=== PATIENT | female | born 1995 | race Caucasian/White ===

== ENCOUNTER 2021-08-12 12:58 | Emergency (ER) | payer BC ==
--- OUTSIDE RECORDS SUMMARY | 2021-08-12 13:02 | XMS REPORT | Continuity of Care Document ---
:1995 Author Organization [facility] t Address [address] [place] [address] Care Team Providers Name Role Phone Kenn Orona Primary Care Physician Laurie Attending Clinician Unavailable Hosea RN, D Attending Clinician Unavailable MOOSE Attending Clinician Unavailable Only, Db Test Attending Clinician Unavailable Moose MARTINEZ Attending Clinician Doctor Unassigned, Name Attending Clinician Unavailable Lab, Fam Pob I Attending Clinician Unavailable Kenn Orona Attending Clinician Laurie Admitting Clinician Unavailable Payers Payer Name Policy Type Policy Number Effective Date Expiration Date S ource Advance Directives Directive Decision Effective Termination Comments Source Date Date Healthcare Agents on N/A [facility] FileNameRelationshipHealthcare [facility] Agent Medical RelationshipCommunicationDelaware Hospital for the Chronically Ill Care [phone] (Mobile) Problems Condition Condition Condition Status Onset Resolution Last Treating Co mments Source Name Details Category Date Date Treatment Clinician Date Need for Need for Disease Active 2018-09 Unive rs prophylact prophylact 0-07 it y of ic ic 00:00: [place] vaccinatio vaccinatio 00 Me dical n and n and Branch inoculatio inoculatio n against n against influenza influenza Rh Rh Disease Active Univers negative negative 8-08 ity of state in state in 00:00: [place] antepartum antepartum 00 Me dical period period Branch Rubella Rubella Disease Active Univers non-immune non-immune 04-25 it y of status, status, 00:00: [place] antepartum antepartum 00 Me dical Branch High risk High risk Disease Active Uni vers , , 04-24 [place] BMI BMI Disease Active Univers 26.0-26.9, 26.0-26.9, 8 it y of adult adult 00:00: [place] 00 Medical Branch History of History of Disease Active U nivers one one 04-24 [place] of miscarriag miscarriag [place] History of History of Disease Active U nivers sleeve sleeve 04-24 ity of gastrectom gastrectom [place] Papanicola Papanicola Disease Active Overview : Univers ou smear ou smear 04-24 Formattin ity of of cervix of cervix 00:00: [place] of this [place] with low with low 00 note Medica l grade grade might be Branch squamous squamous different intraepith intraepith from the elial elial original. 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) Arthralgia Arthralgia Disease Active U nivers of both of both 12-22 ity of knees knees 00:00: [place] 00 Medical Branch Allergies, Adverse Reactions, Alerts Allergy Allergy Status Severity Reaction(s) Onset Inactive Treating Comm ents Source Name Type Date Date Clinician No Known DA Active U [facility] All[facility]ie 12-22 [facility] [place] ondanset DA Active U 2020-0 [facility] sanjiv 4-06 [facility] 00:[facility]: [facility] [place] ondanset DA Active U ITCHING, 2020-0 [facility] sanjiv TONGUE 4-06 Woman's SWELLED 00:00: [facility] [place] No Known DA Active U 2020-0 [facility] Allergie 4-06 [facility] s 00:[facility]: [facility] [place] No Known DA Active U 2020-0 [facility] Allergie 1-28 [facility]'s s 00:00: [facility] [place] No Known DA Active U 2020-0 [facility] Allergie 1-28 [facility] s 00:[facility]: [facility] [place] NO KNOWN Drug Active Univers ALLERGIE Class ity of S [facility] Social History Social Habit Start Date Stop Date Quantity Comments Source ASSERTION 2019-04-03 University of 00:00:00 [facility] Branch Exposure to Not sure [facility] SARS-CoV-2 [facility] (event) Branch Tobacco use and 2020-03-25 2020-03-25 Never used Universit y of exposure 00:00:00 00:00:00 [facility] Alcohol intake 2020-03-25 2020-03-25 Current University 00:00:00 00:00:00 non-drinker of [facility] alcohol Branch (finding) Sex Ass[birth year] Universit y of 00:00:00 00:00:00 [facility] Smoking Status Start Date Stop Date Source Never smoker [facility] Medications Ordered Filled Start Stop Current Ordering Indication Dosage Frequency Signature Comments Components Source Medication Medication Date Date Medication? Clinician (SIG) Name Name 2018-09 Yes Take by Unive rs vit 0-07 mouth. ity of calc,iron,f 14:20: [place] olic 02 Medical ( Branch VITAMIN ORAL) 2019- Yes Take by Unive rs vit 0-07 mouth. ity of calc,iron,f 14:20: [place] olic 02 Medical ( Branch VITAMIN ORAL) 2019- Yes Take by Unive rs vit 0-07 mouth. ity of calc,iron,f [facility] [place] [facility] Branch [facility]) 2019- Yes Take by Unive rs vit 0-07 mouth. ity of calc,iron,f 14:20: [facility] 02 Medical ( Branch VITAMIN ORAL) 2019-1 Yes Take by Unive rs vit 0-07 mouth. ity of calc,iron,f 14:20: [facility] 02 Medical ( Branch VITAMIN ORAL) 2019-1 Yes Take by Unive rs vit 0-07 mouth. ity of calc,iron,f 14:20: [facility] 02 Medical ( Branch VITAMIN ORAL) 2019-0 Yes Take by Unive rs vit 9-09 mouth. ity of calc,iron,f 14:19: [place] [address] Medical ( Branch VITAMIN ORAL) 2019-0 Yes Take by Unive rs vit 9-09 mouth. ity of calc,iron,f 14:19: [place] [address] Medical ( Branch VITAMIN ORAL) 2019-0 Yes Take by Unive rs vit 9-09 mouth. ity of calc,iron,f 14:19: [address] ( Branch VITAMIN ORAL) ergocalcife 2019-0 Yes Take by Un krystina rol, 8-07 mouth. ity of vitamin D2, 14:53: [place] (VITAMIN D 43 Medical ORAL) Branch ergocalcife 2018-0 Yes Take by Un krystina rol, 8-07 mouth. ity of vitamin D2, 14:53: [place] (VITAMIN D 43 Medical ORAL) Branch ergocalcife 2018-0 Yes Take by Un krystina rol, 8-07 mouth. ity of vitamin D2, 14:53: [place] (VITAMIN D 43 Medical ORAL) [place] ergocalcife 2018-0 Yes Take by Un krystina rol, 8-07 mouth. ity of vitamin D2, 14:53: [place] (VITAMIN D 43 Medical ORAL) Branch ergocalcife 2019-0 Yes Take by Un krystina rol, 8-07 mouth. ity of vitamin D2, 14:53: [place] (VITAMIN D 43 Medical ORAL) Branch ergocalcife 2019-0 Yes Take by Un krystina rol, 8-07 mouth. ity of vitamin D2, 14:53: [place] (VITAMIN D 43 Medical ORAL) Branch ergocalcife 2019-0 Yes Take by Un krystina rol, 8-07 mouth. ity of vitamin D2, 14:53: [place] (VITAMIN D 43 Medical ORAL) Branch ergocalcife 2019-0 Yes Take by Un krystina rol, 8-07 mouth. ity of vitamin D2, 14:53: [place] (VITAMIN D 43 Medical ORAL) Branch ergocalcife Yes Take by Un krystina rol, 8-07 mouth. ity of vitamin D2, 14:53: [place] (VITAMIN D 43 Medical ORAL) Branch ergocalcife Yes Take by Un krystina rol, 8-07 mouth. ity of vitamin D2, 14:53: [place] (VITAMIN D 43 Medical ORAL) Branch ergocalcife Yes Take by Un krystina rol, 8-07 mouth. ity of vitamin D2, 14:53: [place] (VITAMIN D 43 Medical ORAL) Branch ergocalcife Yes Take by Un krystina rol, 8-07 mouth. ity of vitamin D2, 14:53: [place] (VITAMIN D 43 Medical ORAL) [place] Yes Take by Unive rs vit 8-07 mouth. ity of calc,iron,f 14:53: [place] [address] Medical ( Branch VITAMIN ORAL) Yes Take by Unive rs vit 8-07 mouth. ity of calc,iron,f 14:53: [place] [address] Medical ( Branch VITAMIN ORAL) Yes Take by Unive rs vit 8-07 mouth. ity of calc,iron,f 14:53: [place] [address] Medical ( Branch VITAMIN ORAL) diclofenac Yes 75mg Take 1 Tab U nivers (VOLTAREN) 4-06 by mouth 2 ity of 75 mg EC 00:00: (two) [place] tablet 00 times Medical daily with Branch meals. diclofenac 2018- No 75mg Take 1 Tab Univers (VOLTAREN) 12-22 08-07 by mouth 2 it y of 75 mg EC 00:00: 00:00 (two) [place] tablet 00 :00 times Medical daily with Branch meals. diclofenac 2018- No 75mg Take 1 Tab Univers (VOLTAREN) 12-22 08-07 by mouth 2 it y of 75 mg EC 00:00: 00:00 (two) [place] tablet 00 :00 times Medical daily with Branch meals. LOESTRIN FE Yes Univer s (MICROGESTI 3-25 ity of N FE 10/07, 00:00: [place] 28,) 1 00 Medical mg-20 mcg Branch (21)/75 mg (7) tablet LOESTRIN FE 2019- No Unive rs (MICROGESTI 3-25 - ity of N FE 10/07, 00:00: 00:00 [place] 28,) 1 00 :00 Medical mg-20 mcg Branch (21)/75 mg (7) tablet LOESTRIN FE 2019- No Unive rs (MICROGESTI 3-25 04-24 ity of N FE 10/07, 00:00: 00:00 [place] 28,) 1 00 :00 Medical mg-20 mcg Branch (21)/75 mg (7) tablet VYVANSE 40 Yes Univers mg capsule 2-10 ity of 00:00: [place] 00 Medical Branch VYVANSE 40 2019- No Univer s mg capsule 2-06 25- ity of 00:00: 00:00 [place] 00 :00 Medical Branch VYVANSE 40 2019- No Univer s mg capsule 2-04-24 ity of 00:00: 00:00 [place] 00 :00 Medical Branch Vital Signs Vital Name Observation Time Observation Value Comments Source Systolic blood 2019-05-27 13:58:00 106 mm[Hg] [facility] Diastolic blood 2019-05-27 13:58:00 69 mm[Hg] Unive rsity of [facility] Heart rate 2019-05-27 13:58:00 82 /min [facility] Body temperature 2019-05-27 13:58:00 36.56 Courtney [facility] Respiratory rate 2019-05-27 13:58:00 16 /min [facility] Body height 2019-05-27 13:58:00 167.6 cm [facility] Body weight 2019-05-27 13:58:00 75.552 kg [facility] BMI 2019-05-27 13:58:00 26.88 kg/m2 [facility] Systolic blood 2019-04-24 14:35:00 92 mm[Hg] Univer sity of [facility] Diastolic blood 2019-04-24 14:35:00 62 mm[Hg] Unive rsity of [facility] Heart rate 2019-04-24 14:35:00 60 /min [facility] Body temperature 2019-04-24 14:35:00 37.06 Courtney [facility] Respiratory rate 2019-04-24 14:35:00 16 /min [facility] Body height 2019-04-24 14:35:00 167.6 cm [facility] Body weight 2019-04-24 14:35:00 76.374 kg [facility] BMI 2019-04-24 14:35:00 27.18 kg/m2 [facility] Procedures Procedure Date / Time Performed Performing Clinician [facility] e ASSIGNMENT OF BENEFITS 2021-05-29 17:36:45 Doctor Unassigned, No [facility] [id number] 2019-12-23 00:00:00 MONMA.05 [facility] [place] [id number] 2019-12-23 00:00:00 MONMA.05 [facility] [place] POCT URINALYSIS W/O 2019-05-27 14:16:[address] [facility] POCT TEST 2019-04-24 14:28:00 Gina Rodriguez [facility] POCT URINALYSIS W/O 2019-04-24 14:28:[address] [facility] ASSIGNMENT OF BENEFITS 2019-04-24 13:39:32 Doctor Unassigned, No [facility] Encounters Start End Encounter Admission Attending Care Care Encounter Source Date/Time Date/Time Type Type Clinicians Facility Department ID 2020-01-01 Inpatient SRI Fowler LD [id number] [facility] 06:56:00 Aurea [id number] [facility] [place] 2019-12-23 Inpatient SRI Fowler AKOSUA [id number] [facility] 06:35:00 Aurea [facility] [place] 2019-10-15 Inpatient SRI Fowler AKOSUA [id number] [facility] 19:51:00 Aurea [id number] [facility] [place] 2021-05-30 2021-05-30 Telephone JOSE Jc [id number] [facility] 00:00:00 00:00:00 Maryann D LENORA [id number] i ty of HOSPITAL 4.2.7.2.686 [place] [phone] [facility] 019 Branch 2021-05-29 2021-05-29 Outpatient R [facility] [id number] Univers 19:45:00 19:45:00 [id number] ity of [facility] 2021-05-29 2021-05-29 [id number] Univers 19:45:00 19:45:00 GAIL ity [facility] 2021-05-29 2021-05-29 Laboratory Only, Ang Db Test [facility] 1.2.8 [id number] [id number] Univers 12:37:39 12:47:39 Only Moose [facility] 350.1.13.10 ity of [place] 4.2.7.2.686 [place] Chinmay?Blea [phone] [address] nelson karimi [address] [place] [facility] 2021-05-29 2021-05-29 Orders Doctor GARCIA [id number] Univers 00:00:00 00:00:00 Only Unassigned, LENORA 350.1.13.10 ity of [place] [facility] 4.2.7.2.686 [place] [id number] [facility] 009 Branch 2020-07-15 2020-07-15 Outpatient R [facility] [id number] Univers 09:00:00 09:00:00 [id number] ity of [facility] 2020-07-14 2020-07-14 Outpatient R MOOSE [facility] [id number] Univers 19:00:00 19:00:00 GAIL ity of [facility] 2020-07-14 2020-07-14 Laboratory Lab, Adc Fam Pob I [facility] 1.2. [id number] [id number] Univers 18:08:46 18:28:46 Only Moose [facility] 350.1.13.10 ity of [place] 4.2.7.2.686 [place] Professio [phone] N[address] nelson thompson [address] [place] [facility] One 2020-07-14 2020-07-14 [facility] [id number] Univers 18:20:00 18:20:00 GAIL ity of [facility] 2020-07-14 2020-07-14 Outpatient R [facility] [id number] Univers 13:40:00 13:40:00 [id number] ity [facility] 2020-07-14 2020-07-14 Outpatient R [facility] [id number] Univers 13:40:00 13:40:00 ity [facility] 2019-05-27 2019-05-27 [facility] [id number] Univers 08:46:01 09:11:08 Gina N RECREATIONAL DIRECTOR [id number] i ty of Visit [facility] 4.2.7.2.686 [place] MATERNAL [phone] Med ical & CHILD [address] [place] [address] 2019-05-27 2019-05-[address] [facility] [id number] 00:00:00 00:00:00 Gina N RECREATIONAL DIRECTOR [id number] REGIONAL 4.2.7.2.686 MATERNAL [id number] & CHILD [address] [place] [address] 2019-05-27 2019-05-27 [facility] 1.2.840.114 [id number] Univers 00:00:00 00:00:00 Gina Hawk RECREATIONAL DIRECTOR 350.1.13.10 it y of REGIONAL 4.2.7.2.686 [place] MATERNAL [phone] Med ical & CHILD [address] [place] [address] 2019-04-24 2019-04-24 Initial LULI Rodriguez [id number] Univers 09:26:44 10:14:16 Gina N RECREATIONAL DIRECTOR 350.1.13.10 i ty of Visit [facility] 4.2.7.2.686 [place] as MATERNAL [id number] Med ical & CHILD [address] [place] [address] 2019-04-24 2019-04-24 Orders Doctor GARCIA [id number] Univers 00:00:00 00:00:00 Only Unassigned, LENORA 350.1.13.10 ity of [place] [facility] 4.2.7.2.686 [place] [phone] [address] 2019-04-24 2019-04-24 [facility] 1.2.840.114 [id number] Univers 00:00:00 00:00:00 Gina N RECREATIONAL DIRECTOR [id number] it y of REGIONAL 4.2.7.2.686 [place] MATERNAL [id number] Med ical & CHILD [address] [place] [address] Results Test Description Test Time Test Comments Results Result Comments Source HGB HCT 2019-12-24 06:22:00 Test Item Value Reference Range Interpretation Comme nts HEMOGLOBIN (test code = HGB) 10.6 g/dL 10.7-13.9 L HEMATOCRIT (test code = HCT) 31.8 % 32.1-42.1 L AG HEPATITIS B [id number] 10:08:00 Test Item Value Reference Range Interpretation Comments AG HEPATITIS B SURFACE (test code NONREACTIVE NONREACTIVE = HBSAG) IS CONSENT FORM SIGNED FOR HIV TESTING? YAB HEPATITIS C [id number] 10:08:00 Test Item Value Reference Range Interpretation Comments AB HEPATITIS C (test code = NONREACTIVE NONREACTIVE HCVAB) SIGNAL TO CUTOFF (test code = 0.21 <0.80 N CUTOFF) IS CONSENT FORM SIGNED FOR HIV TESTING? YAB [id number] 10:08:00 Test Item Value Reference Range Interpretation Comments AB TREPONEMA (test code = TREPAB) NONREACTIVE NONREACTIVE IS CONSENT FORM SIGNED FOR HIV TESTING? YAB HIV 1 10:08:00 Test Item Value Reference Range Interpretation Comments AB HIV 1 2 (test NONREACTIVE NONREACTIVE [id number][facility] 4th Gen HIV Ag/Ab Combo Screen IS CONSENT FORM SIGNED FOR HIV TESTING? YAG HEPATITIS B [id number] 09:51:00 Test Item Value Reference Range Interpretation Comments AG HEPATITIS B SURFACE (test code NONREACTIVE NONREACTIVE = HBSAG) IS CONSENT FORM SIGNED FOR HIV TESTING? YAB HEPATITIS C [id number] 09:51:00 Test Item Value Reference Range Interpretation Comments AB HEPATITIS C (test code = HCVAB) NONREACTIVE SIGNAL TO CUTOFF (test code = CUTOFF) <0.80 IS CONSENT FORM SIGNED FOR HIV TESTING? YAB [id number] 09:51:00 Test Item Value Reference Range Interpretation Comments AB TREPONEMA (test code = TREPAB) NONREACTIVE NONREACTIVE IS CONSENT FORM SIGNED FOR HIV TESTING? YAB HIV 1 09:51:00 Test Item Value Reference Range Interpretation Comments AB HIV 1 2 (test code = [id number]) NONREACTIVE IS CONSENT FORM SIGNED FOR HIV TESTING? YCBC W/AUTO [id number] 08:53:00 Test Item Value Reference Range Interpretation Comments WHITE BLOOD CELL (test code = WBC) 11.6 K/mm3 6.6-12.1 N RED BLOOD CELL (test code = RBC) 3.86 M/mm3 3.45-5.01 N HEMOGLOBIN (test code = HGB) 12.0 g/dL 10.7-13.9 N HEMATOCRIT (test code = HCT) 36.0 % 32.1-42.1 N MEAN CELL VOLUME (test code = MCV) 93 fL 84.1-94.8 N MEAN CELL HGB (test code = MCH) 31.1 pg 27-35 N MEAN CELL HGB CONCETRATION (test 33.3 gm/dL 32.2-34.1 N code = MCHC) RED CELL DISTRIBUTION WIDTH (test 12.8 % 12.4-16.5 N code = RDW) PLATELET COUNT (test code = PLT) 173 K/mm3 133-385 N MEAN PLATELET VOLUME (test code = 12.4 fl 9.1-12.7 N MPV) NEUTROPHIL % (test code = NT%) 65.0 % 56.5-79.4 N LYMPHOCYTE % (test code = LY%) 26.5 % 14.3-34.3 N MONOCYTE % (test code = MO%) 6.1 % 5.1-10.4 N EOSINOPHIL % (test code = EO%) 0.7 % 0.1-3.0 N BASOPHIL % (test code = BA%) 0.5 % 0.1-1.0 N NEUTROPHIL # (test code = NT#) 7.5 K/mm3 LYMPHOCYTE # (test code = LY#) 3.1 K/mm3 MONOCYTE # (test code = MO#) 0.7 K/mm3 EOSINOPHIL # (test code = EO#) 0.08 K/mm3 BASOPHIL # (test code = BA#) 0.1 K/mm3 RBC MORPHOLOGY REQUIRED (test code NORMAL NORMAL = RBCM) PLATELET MORPHOLOGY REQUIRED (test NORMAL NORMAL code = PLTMR) RUPTURE OF [id number] 08:40:00 Test Item Value Reference Range Interpretation Comments RUPTURE OF MEMBRANES (test code = RUPTURED ROM) - US FET BIO PH FL W/O [id number] 07:53:00 Patient Name: NELLIE JACOBO Unit No: [id number] EXAMS: CPT CODE: [id number] US FET BIO PH FL W/O NST 47389 [facility] [address] [place], [place] [address] BIOPHYSICAL PROFILE ULTRASOUND REPORT Pat. Name: NELLIE JACOBO Pat. No: [id number] Study Date: 12/23/2019 7:14am , Age: 11 1995, 24 Pregnancies: 2, Para 0 LMP: Unknown GA by 1st: 38w5d GA Selected: 38w5d (From First S) SCOTT: 01/01/2020Sonographer: Liberty Singletary RDMS CPT4: USBPPWONST Admitting MD: AUREA FOWLER Hist/Ind: SCAN 2 BLEEDING Heart Rate: 127 bpm Amniotic Fluid Index: 16.4cm (07.2-23.0) Q1: 4.8cm Q2: 5.9cm Q3: 2.4cm Q4: 3.4cm Biophysical Profile: 04/25 Breathin Tone: 2 Movement: 2 AFV:2 MATERNAL ANATOMY Ovaries LxHxW (cm) Right 2.8 x 1.5x 1.5 Vol: 3.3cc Left 2.6 x 1.8 x 2.2 Vol: 5.4cc CLI NICAL SUMMARY Type of Gestation: Mendez Intrauterine in vertex presentation. motion and organs seen: heart motion seen body and limb movements observed tone noted breathing movements observed Placental location: Anterior Placental maturity : Grade 2 There is no evidence of placenta previa. Amniotic fluid volume is normal. Uterus and adnexa: No significant abnormality is seen. Thank you for allowing us to participate in the care of this patient. Dalton Mccoy M.D. Electronic Signature 12/23/2019 07:53am [facility] NAME: JACOBONELLIE Radiology Department PHYS: Aurea Thomas DO [address] : 1995 AGE: 24 SEX: [place], [place] [address] LOC: MaicolAKOSUA PHONE #: [phone] EXAM DATE: 12/23/2019 STATUS: REG ER FAX #: [phone] RAD NO: Page 1 Signed Report (CONTINUED) Patient Name: NELLIE JACOBO Unit No: [id number] EXAMS: CPT CODE: [id number] US FET BIO PH FL W/O NST 15381 <Continued> at 0753 Reported and signed by: Dalton Mccoy MD CC: Aurea Fowler DO Technologist: Liberty Singletary RDMS Probe: Trnscrbd D/ (075) t.[email or web address].[email or web address] Orig Print D/T: S: 12/23/2019 (0753) [facility] NAME: NELLIE JACOBO Radiology Department PHYS: [address] Aurea Fowler [address] : 1995 AGE: 24 SEX: F [place] [address] LOC: MaicolAKOSUA PHONE #: [phone] EXAM DATE: 12/23/2019 STATUS: REG ER FAX #: [phone] RAD NO: Page 2 Signed Report Patient Name: NELLIE JACOBO Unit No: [id number] EXAMS: CPT CODE: [id number] US FET BIO PH FL W/O NST 39302 <Continued> [facility] NAME: NELLIE JACOBO Radiology Department PHYS: HERNANDEZ Aurea Fowler DO [address] [place] : 1995 AGE: 24 SEX: F [place] [address] LOC: MaicolAKOSUA PHONE #: [phone] EXAM DATE: 12/23/2019 STATUS: REG ER FAX #: [phone] RAD NO: Page 3 Signed Report- US PREG UT [id number] 21:44:00 Patient Name: NELLIE JACOBO J Unit No: [id number] EXAMS: CPT CODE: [id number] US PREG [place] TRANSVAGINAL 84675 Limited obstetrical ultrasound with transvaginal imaging of the cervix dated 10/15/2019. HISTORY: 28.6 week . Abdominal pain. A limited transabdominal obstetrical ultrasound was performed and reveals the presence of a single intrauterine in cephalic position. cardiac activity is documented with a heart rate of 121 bpm. The placenta is anteriorly positioned and demonstrates grade 2 echotexture. There is no evidence of placenta previa or retroplacental hemorrhage. Amniotic fluid volume is increased with a measured BRITTANY of 20.6. The cervix is closed with a measured cervical length of 4.1 cm on transvaginal imaging. measurements were not obtained. A anatomic survey was not performed. The left ovary measures 2.9 x 2.1 x 2.7 cm and the left ovary measures 2.7 x 1.0 x 2.0 cm. The ovaries maintain normal echotexture. Ovarian blood flow is visualized bilaterally using Doppler ultrasound. No adnexal masses or pelvic fluid collections are identified. IMPRESSION: 1. Single living intrauterine in cephalic position. 2. Amniotic fluid volume is increased with a measured BRITTANY of 20.6. SL: 131 at 2144 Reported and signed by: Braden Rocha MD CC: Aurea Fowler DO Technologist: Sandra Alcaraz RDMS, T Probe: [id number] Trnscrbd D/ (2143) tCLEM Orig Print D/T: S: 10/15/2019 (2146) [facility] NAME: NELLIE JACOBO Radiology Department PHYS: Aurea Thomas DO [address] : 1995 AGE: 24SEX: F [place] [address] LOC: F.AKOSUA PHONE #: [phone] EXAM DATE: 10/15/2019 STATUS: REG ER FAX #: [phone] RAD NO: Page 1 Signed Report Patient Name: NELLIE JACOBO Unit No: [id number] EXAMS: CPT CODE: [id number] [facility] TRANSVAGINAL [address] <Continued> [facility] Radiology Department PHYS: Aurea Thomas DO [address] : 1995 AGE: 24 SEX: F [place] [address] [facility] [id number] LOC: MaicolAKOSUA PHONE #: [phone] EXAM DATE: 10/15/2019 STATUS: REG ER FAX #: [phone] RAD NO: Page 2 Signed Report- US [id number] 21:44:00 Patient Name: NELLIE JACOBO Unit No: [id number] EXAMS: CPT CODE: [id number] [place] LTD [address] Limited obstetrical ultrasound with transvaginal imaging of the cervix dated 10/15/2019. HISTORY: 28.6 week . Abdominal pain. A limited transabdominal obstetrical ultrasound was performed and reveals the presence of a single intrauterine in cephalic position. cardiac activity is documented with a heart rate of 121 bpm. The placenta is anteriorly po sitioned and demonstrates grade 2 echotexture. There is no evidence of placenta previa or retroplacental hemorrhage. Amniotic fluid volume is increased with a measured BRITTANY of 20.6. The cervix is closed with a measured cervical length of 4.1 cm on transvaginal imaging. measurements were not obtained. A anatomic survey was not performed. The left ovary measures 2.9 x 2.1 x 2.7 cm and the left ovary measures 2.7 x 1.0 x 2.0 cm. The ovaries maintain normal echotexture. Ovarian blood flow is visualized bilaterally using Doppler ultrasound. No adnexal masses or pelvic fluid collections are identified. IMPRESSION: 1. Single living intrauterine in cephalic position. 2. Amniotic fluid volume is increased with a measured BRITTANY of 20.6. SL: 131 at 2143 Reported and signed by: Braden Rocha MD CC: Aurea Fowler DO; Britta Cardenas MD Technologist: Sandra Alcaraz RDMS, RVT Probe: Trnscrbd D/ (2143) [place] Orig Print D/T: S: 10/15/2019 (2146) [facility] NAME: FEMI JACOBOI Moe Radiology Department PHYS: Britta Medel MD [address] : 1995 AGE: 24SEX: F [place], [place] [address] LOC: MaicolAKOSUA PHONE #: [phone] EXAM DATE: 10/15/2019 STATUS: REG ER FAX #: [phone] RAD NO: Page 1 Signed Report Patient Name: FEMI MARTINSI Moe Unit No: [id number] EXAMS: CPT CODE: [id number] [id number] <Continued> [facility] Rad[facility] PHYS: Britta Medel MD [address] : 1995 AGE: 24 SEX: F [place], [place] [address] LOC: MaicolAKOSUA PHONE #: [phone] EXAM DATE: 10/15/2019 STATUS: REG ER FAX #: [phone] RAD NO: Page 2 Signed ReportURINALYSIS [id number] 20:39:00 Test Item Value Reference Range Interpretation Comments UA COLOR (test code = COLU) YELLOW YELLOW UA APPEARANCE (test code = Slightly-Cloudy CLEAR APPU) UA GLUCOSE DIPSTICK (test NEGATIVE NEG code = DGLUU) UA BILIRUBIN DIPSTICK (test NEGATIVE NEG code = BILU) UA KETONE DIPSTICK (test code NEGATIVE NEG = KETU) UA SPECIFIC GRAVITY (test 1.020 1.001-1.035 N code = SGU) UA BLOOD DIPSTICK (test code NEG NEG = MISTY) UA PH DIPSTICK (test code = 5.0 5-9 RIO) UA PROTEIN DIPSTICK (test NEGATIVE NEG code = PROU) UA UROBILINIOGEN DIPSTICK 2.0 mg/dL NEG (test code = URO) UA NITRITE DIPSTICK (test NEG NEG code = ARLETH) UA LEUKOCYTE ESTERASE TRACE NEG A DIPSTICK (test code = LEUU) UA WBC (test code = WBCU) 6-10 #/hpf NONE SEEN A UA RBC (test code = RBCU) 0-2 #/hpf NONE SEEN UA EPITHELIAL CELLS (test MODERATE #/HPF RARE-FEW A code = EPIU) UA BACTERIA (test code = RARE /HPF RARE-FEW BACU) UA MUCUS (test code = MUCU) 2+ NONE SEEN URINE SAMPLE: CLEAN CATCHPOCT URINALYSIS W/O SPECIFIC [id number] 14:16:00 Test Item Value Reference Range Interpretation Comments POCT PH U (test code = 3254) . 5-8 POCT U LEUK EST (test code = 3263) . Negative - Negative POCT U NIT (test code = 3262) . Negative - Negative POCT U PROT (test code = 3259) neg Negative - Negative POCT U GLU (test code = 3256) neg Negative - Negative POCT U KETONE (test code = 3258) . Negative - Negative POCT U BLD (test code = 3257) . Negative - Negative [facility] [id number] 14:29:00 Test Item Value Reference Range Interpretation Comments POCT PREG (test code = 1605) Positive On board controls acceptable with C Yes Line (test code = 3574) POCT PREG LOT # (test code = 3575) POCT PREG TEST DATE (test code = 3576) [facility] [id number] 14:29:00 Test Item Value Reference Range Interpretation Comments POCT PREG (test code = 1605) Positive On board controls acceptable with C Yes Line (test code = 3574) POCT PREG LOT # (test code = 3575) POCT PREG TEST DATE (test code = 3576) [facility] URINALYSIS W/O SPECIFIC [id number] 14:28:00 Test Item Value Reference Range Interpretation Comments POCT PH U (test code = 3254) 5 mg/dl 5-8 POCT U LEUK EST (test code = trace Negative - Negative 3263) POCT U NIT (test code = 3262) neg Negative - Negative POCT U PROT (test code = 3259) neg Negative - Negative POCT U GLU (test code = 3256) neg Negative - Negative POCT U KETONE (test code = 3258) neg Negative - Negative POCT U BLD (test code = 3257) neg Negative - Negative [facility] URINALYSIS W/O SPECIFIC [id number] 14:28:00 Test Item Value Reference Range Interpretation Comments POCT PH U (test code = 3254) 5 mg/dl 5-8 POCT U LEUK EST (test code = trace Negative - Negative 3263) POCT U NIT (test code = 3262) neg Negative - Negative POCT U PROT (test code = 3259) neg Negative - Negative POCT U GLU (test code = 3256) neg Negative - Negative POCT U KETONE (test code = 3258) neg Negative - Negative POCT U BLD (test code = 3257) neg Negative - Negative [facility]
[2021-08-12 13:41] LABS: Absolute Lymphocytes (CBC) 1.9 K/uL (0.7-4.9); Basophils % 0.4 % (0-1.3); Hematocrit 38.3 % (36.0-45.0); Lymphocytes % 36.7 % (15.3-44.8); RBC Red Blood Cell Count 4.27 M/uL (3.86-4.86)
[2021-08-12 14:00] LABS: Albumin 3.3 g/dL (3.4-5.0); Bilirubin Direct 0.1 mg/dL (0-0.2); Bilirubin Total 0.5 mg/dL (0.2-1.0); Magnesium 2.4 mg/dL (1.8-2.4); Potassium 3.6 mmol/L (3.5-5.1); Protein, Total 7.2 g/dL (6.4-8.2)
[2021-08-12 14:30] LABS: Urine Blood Trace-intact (Negative); Urine Glucose Negative (Negative); Urine Protein Negative (Negative); Urine Specific Gravity 1.015 (1.005-1.030); Urine pH 6.5 (5.0-7.0)
[2021-08-12 14:49] LABS: Urine Bacteria <20 /HPF (<20); Urine RBC <5 /HPF (NONE SEEN)
[2021-08-12 14:57] LABS: Urine Blood TRACE (Negative); Urine Glucose NEGATIVE (Negative); Urine Protein NEGATIVE (Negative); Urine Specific Gravity 1.015 (1.005-1.030); Urine Specific Gravity/Preg 1.015 (1.005-1.030); Urine pH 6.5 (5.0-7.0)
--- NOTE | 2021-08-12 16:12 | RAD REPORT ---
EXAM DESCRIPTION: CT - Abdomen Pelvis W Contrast - 08/12/2021 3:58 pm CLINICAL HISTORY: Abdominal pain. COMPARISON: None. TECHNIQUE: Computed axial tomography of the abdomen and pelvis was obtained. 100 cc Isovue-300 is ad ministered intravenously. Oral contrast was given. All CT scans are performed using dose optimization technique as appropriate and may include automated exposure control or mA/KV adjustment according to patient size. FINDINGS: Postsurgical changes involve the stomach. The liver, spleen, pancreas, adrenals and kidneys appear unremarkable. The appendix is normal caliber. There is no evidence of diverticulitis No adnexal mass. Small umbilical hernia 2 centimeter area of narrowing rectosigmoid colon IMPRESSION: A 2 centimeter area of narrowing rectosigmoid colon most likely spasm. A mass can have this appearance but is considered less likely. Followup is recommended.
--- NOTE | 2021-08-12 16:33 | ER ---
Nurse's Notes [facility] Name: María Sinha Age: 26 yrs Sex: Female : 1995 Arrival Date: 08/12/2021 Time: 13:02 Bed 14 Private MD: Diagnosis: Abdominal pain, unspecified Presentation: 08/12 13:11 Chief complaint: Patient states: Epigastric and RLQ pain that is intermittent for about vg1 a month. States pain becomes worse after eating. States NVD last night. Coronavirus screen: Vaccine status: Client denies travel out of the [place] in the last 14 days. Ebola Screen: Patient negative for fever greater than or equal to 101.5 degrees Fahrenheit, and additional compatible Ebola Virus Disease symptoms. Initial Sepsis Screen: Does the patient meet any 2 criteria? No. Patient's initial sepsis screen is negative. Does the patient have a suspected source of infection? No. Patient's initial sepsis screen is negative. Risk Assessment: Do you want to hurt yourself or someone else? Patient reports no desire to harm self or others. Onset of symptoms was July 12, 2021. 13:11 Method Of Arrival: Ambulatory vg1 13:11 Acuity: SAMREEN 3 vg1 Triage Assessment: 13:14 General: Appears in no apparent distress. uncomfortable, Behavior is calm, cooperative. vg1 Pain: Complains of pain in epigastric area and right lower quadrant Pain currently is 2 out of 10 on a pain scale. at worst was 8 out of 10 on a pain scale. Pain began about a month ago. GI: Abdomen is flat, non-distended, Reports diarrhea, vomiting, since yesterday. 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 - Social history:: Smoking status: Patient denies any tobacco usage or history of. Screenin:30 Abuse screen: Denies threats or abuse. Denies injuries from another. Nutritional aj1 screening: No deficits noted. Tuberculosis screening: No symptoms or risk factors identified. 17:02 Fall Risk None identified. aj1 Assessment: 13:30 General: Appears in no apparent distress. uncomfortable, Behavior is calm, cooperative, aj1 appropriate for age. Pain: Complains of pain in right lower quadrant and epigastric area Pain does not radiate. Neuro: Level of Consciousness is awake, alert, obeys commands, Oriented to person, place, time, situation. Cardiovascular: Patient's skin is warm and dry. Respiratory: Airway is patent Respiratory effort is even, unlabored, Respiratory pattern is regular, symmetrical. GI: Abdomen is flat, non-distended, Bowel sounds present X 4 quads. Abd is soft X 4 quads Reports lower abdominal pain, upper abdominal pain, diarrhea, nausea, vomiting. : No signs and/or symptoms were reported regarding the genitourinary system. EENT: No signs and/or symptoms were reported regarding the EENT system. Derm: No signs and/or symptoms reported regarding the dermatologic system. Skin is pink, warm \T\ dry. normal. Musculoskeletal: No signs and/or symptoms reported regarding the musculoskeletal system. Circulation, motion, and sensation intact. 13:44 Reassessment: Notified CT that patient finished her contrast. aj1 14:32 Reassessment: Patient appears in no apparent distress at this time. No changes from aj1 previously documented assessment. Patient and/or family updated on plan of care and expected duration. Pain level reassessed. Patient is alert, oriented x 3, equal unlabored respirations, skin warm/dry/pink. 15:50 Reassessment: Patient appears in no apparent distress at this time. No changes from aj1 previously documented assessment. Patient and/or family updated on plan of care and expected duration. Pain level reassessed. Patient is alert, oriented x 3, equal unlabored respirations, skin warm/dry/pink. Patient transported to CT via wheelchair. 17:02 Reassessment: Patient appears in no apparent distress at this time. No changes from aj1 previously documented assessment. Patient and/or family updated on plan of care and expected duration. Pain level reassessed. Patient is alert, oriented x 3, equal unlabored respirations, skin warm/dry/pink. Vital Signs: 13:11 BP 115 / 71; Pulse 86; Resp 16; Temp 98.1; Pulse Ox 100% ; Weight 81.65 kg; Height 5 vg1 ft. 6 in. (167.64 cm); Pain 2/10; 14:32 BP 96 / 63; Pulse 69; Resp 16; Pulse Ox 98% on R/A; aj1 15:50 BP 107 / 70; Pulse 72; Resp 18; Pulse Ox 100% on R/A; aj1 17:02 BP 106 / 65; Pulse 68; Resp 18; Pulse Ox 99% on R/A; aj1 13:11 Body Mass Index 29.05 (81.65 kg, 167.64 cm) vg1 ED Course: 13:02 Patient arrived in ED. mr 13:07 Chaim Iverson PA is PHCP. cp 13:07 Jeremiah Burgess MD is Attending Physician. cp 13:13 Aysha Najera, RN is Primary Nurse. aj1 13:13 Triage completed. vg1 13:14 Arm band placed on. vg1 13:28 Patient has correct armband on for positive identification. Bed in low position. Call 5 light in reach. Side rails up X 1. Adult w/ patient. Warm blanket given. Pulse ox on. NIBP on. 13:30 No provider procedures requiring assistance completed. aj1 13:45 Inserted saline lock: 20 gauge in right antecubital area, using aseptic technique. aj1 Blood collected. 15:58 CT Abd/Pelvis - PO and IV Contrast In Process Unspecified. EDMS 16:32 Ronald Allen MD is Referral Physician. cp 17:02 IV discontinued, intact, bleeding controlled, No redness/swelling at site. Pressure aj1 dressing applied. Administered Medications: No medications were administered Outcome: 16:33 Discharge ordered by . cp 17:02 Discharged to home ambulatory. aj1 17:02 Condition: good 17:02 Discharge instructions given to patient, Instructed on discharge instructions, follow up and referral plans. medication usage, Demonstrated understanding of instructions, follow-up care, medications, Prescriptions given X 2. 17:02 Patient left the ED. aj1 Signatures: Dispatcher [employer] EDMS Aysha Najera, RN RN jami1 Tanvi Deluna mr Chaim Iverson PA PA cp Martinez, Maria [facility] Rosalee Jc RN RN vg1
--- NOTE | 2021-08-12 16:34 | EDPHYS ---
Physician Documentation [facility] Name: María Sinha Age: 26 yrs Sex: Female : 1995 Arrival Date: 08/12/2021 Time: 13:02 Bed 14 Private MD: ED Physician Jeremiah Burgess HPI: 08/12 13:15 This 26 yrs old Female presents to ER via Ambulatory with complaints of Abdominal Pain, cp Vomiting/Diarrhea. 13:15 The patient presents with abdominal pain mid abdomen. Onset: The symptoms/episode cp began/occurred 1 month(s) ago, intermittent. The symptoms do not radiate. Associated signs and symptoms: Pertinent positives: nausea and vomiting, diarrhea, Pertinent negatives: blood in stools, chest pain, dysuria, fever, vomiting blood. Modifying factors: The symptoms are alleviated by Pepcid, the symptoms are aggravated by food. Severity of pain: in the emergency department the pain has resolved. 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 - Social history:: Smoking status: Patient denies any tobacco usage or history of. ROS: 13:20 Eyes: Negative for injury, pain, redness, and discharge. cp 13:20 Constitutional: Negative for body aches, chills, fever, poor PO intake. 13:20 Cardiovascular: Negative for chest pain, palpitations. 13:20 Respiratory: Negative for cough, shortness of breath, wheezing. 13:20 Abdomen/GI: Positive for abdominal pain, nausea, vomiting, and diarrhea, Negative for constipation, anorexia, black/tarry stool, rectal bleeding. 13:20 Back: Negative for pain at rest, pain with movement. cp 13:20 Neuro: Negative for altered mental status, headache, weakness. 13:20 : Negative for urinary symptoms. cp 13:20 All other systems are negative. Exam: 13:25 Constitutional: The patient appears in no acute distress, alert, awake, non-toxic, well cp developed, well nourished. 13:25 Head/Face: Normocephalic, atraumatic. cp 13:25 Eyes: Periorbital structures: appear normal, Conjunctiva: normal, no exudate, no injection, Sclera: no appreciated abnormality, Lids and lashes: appear normal, bilaterally. 13:25 ENT: External ear(s): are unremarkable, Nose: is normal, Mouth: Lips: moist, Oral mucosa: moist, Posterior pharynx: Airway: no evidence of obstruction, patent. 13:25 Chest/axilla: Inspection: normal. 13:25 Cardiovascular: Rate: normal, Rhythm: regular. 13:25 Respiratory: the patient does not display signs of respiratory distress, Respirations: normal, no use of accessory muscles, no retractions, labored breathing, is not present, Breath sounds: are clear throughout. 13:25 Abdomen/GI: Inspection: abdomen appears normal, Bowel sounds: active, all quadrants, Palpation: soft, in all quadrants, mild abdominal tenderness, in the mid abdomen, voluntary guarding, is not appreciated, involuntary guarding, is not appreciated, no appreciated organomegaly. 13:25 Back: pain, is absent, ROM is normal. Vital Signs: 13:11 BP 115 / 71; Pulse 86; Resp 16; Temp 98.1; Pulse Ox 100% ; Weight 81.65 kg; Height 5 vg1 ft. 6 in. (167.64 cm); Pain 2/10; 14:32 BP 96 / 63; Pulse 69; Resp 16; Pulse Ox 98% on R/A; aj1 15:50 BP 107 / 70; Pulse 72; Resp 18; Pulse Ox 100% on R/A; aj1 17:02 BP 106 / 65; Pulse 68; Resp 18; Pulse Ox 99% on R/A; aj1 13:11 Body Mass Index 29.05 (81.65 kg, 167.64 cm) vg1 MDM: 13:10 Patient medically screened. cp 14:00 Differential diagnosis: cholecystitis, Cholelithiasis, gastritis, pancreatitis, Peptic cp Ulcer Disease, Perf. Duodenal Ulcer, Perf. Gastric Ulcer, Ureterolithiasis, urinary tract infection. 16:30 Data reviewed: vital signs, nurses notes, lab test result(s), radiologic studies, CT cp scan. 16:32 Counseling: I had a detailed discussion with the patient and/or guardian regarding: the cp historical points, exam findings, and any diagnostic results supporting the discharge/admit diagnosis, lab results, radiology results, the need for outpatient follow up, a pay clerk, to return to the emergency department if symptoms worsen or persist or if there are any questions or concerns that arise at home. 16:32 Response to treatment: the patient's symptoms have mildly improved after treatment, and cp as a result, I will discharge patient. Special discussion: Based on the patient's Hx, exam, and Dx evaluation, there is no indication for emergent surgery or inpatient Tx. It is understood by the patient/guardian that if the Sx's persist or worsen they need to return immediately for re-evaluation. 08/12 13:10 Order name: Urine Microscopic Only; Complete Time: 15:32 08/12 13:18 Order name: Basic Metabolic Panel 08/12 13:18 Order name: CBC with Diff 08/12 13:18 Order name: Hepatic Function; Complete Time: 14:29 08/12 14:29 Interpretation: Normal except: AST 12; ALB 3.3; GLOB 3.9; A/G 0.8. 08/12 13:18 Order name: Lipase; Complete Time: 14:29 08/12 16:19 Interpretation: Reviewed. 08/12 13:18 Order name: Magnesium; Complete Time: 14:29 08/12 13:10 Order name: Urine Dipstick-Ancillary (obtain specimen); Complete Time: 14:36 08/12 13:18 Order name: CT Abd/Pelvis - PO and IV Contrast; Complete Time: 16:18 08/12 16:19 Interpretation: Report reviewed. 08/12 13:18 Order name: Basic Metabolic Panel; Complete Time: 14:29 EDMS 08/12 14:29 Interpretation: Normal except: CL 108; GFR 77. 08/12 13:18 Order name: CBC with Automated Diff; Complete Time: 14:29 EDWI 08/12 14:30 Order name: Urine Dipstick-Ancillary; Complete Time: 15:32 EDMS 08/12 15:32 Interpretation: Normal except: UBLD Trace-intact. 08/12 14:53 Order name: Urine Dipstick--Ancillary (enter results); Complete Time: 15:32 vg1 08/12 15:32 Interpretation: Normal except: UBLD TRACE. 08/12 14:53 Order name: Urine --Ancillary (enter results) vg1 08/12 14:54 Order name: Urine --Ancillary; Complete Time: 15:32 EDMS 08/12 13:10 Order name: Urine Test (obtain specimen); Complete Time: 14:36 cp 08/12 13:18 Order name: IV Saline Lock; Complete Time: 13:45 cp 08/12 13:18 Order name: Labs collected and sent; Complete Time: 13:45 cp 08/12 16:20 Order name: PO challenge; Complete Time: 16:36 cp Administered Medications: No medications were administered Disposition Summary: 08/12/21 16:33 Discharge Ordered Location: Home cp Problem: new cp Symptoms: have improved cp Condition: Stable cp Diagnosis - Abdominal pain, unspecified cp Followup: cp - With: Ronald Allen MD - When: 1 week - Reason: Recheck today's complaints Discharge Instructions: - Discharge Summary Sheet cp - Abdominal Pain, Adult cp Forms: - Medication Reconciliation Form cp - Thank You Letter cp - Antibiotic Education cp - Prescription Opioid Use cp Prescriptions: - Protonix 40 mg Oral Tablet - take 1 tablet by ORAL route once daily; 30 tablet; Refills: 0, Product cp Selection Permitted - promethazine 25 mg Oral Tablet - take 1 tablet by ORAL route every 6 hours As needed; 20 tablet; Refills: 0, cp Product Selection Permitted Signatures: Dispatcher [employer] EDWI Chaim Iverson PA PA cp Garcia, Victoria, RN RN vg1 Corrections: (The following items were deleted from the chart) :08/11 13:20 Constitutional: Negative for body aches, chills, fever, poor PO intake, cp cp 08/12 17:08/11 13:20 Cardiovascular: Negative for chest pain, palpitations, cp cp 08/12 17:32 08/11 13:20 Respiratory: Negative for cough, shortness of breath, wheezing, cp cp 08/12 17:08/11 13:20 Abdomen/GI: Positive for abdominal pain, nausea, vomiting, and diarrhea, cp Negative for constipation, anorexia, black/tarry stool, rectal bleeding, cp 08/12 17:08/11 13:20 Eyes: Negative for injury, pain, redness, and discharge, cp cp
[2021-08-12 17:10] VITALS: TEMP 98.1
[2021-08-12 17:14] VITALS: BP 106/65; O2SAT 99
== END 2021-08-12 17:02 | disposition home or self-care (01) ==
LOC: ER 12:58
DX: R10.9 Unspecified abdominal pain (principal)
CPT/HCPCS: 85025; 80048; 36415; 83735; 81025; 80076; 83690; 74177; 99284; Q9967; 81003; 81015

== ENCOUNTER 2023-03-18 22:40 | Emergency (ER) | payer OTHER ==
--- OUTSIDE RECORDS SUMMARY | 2023-03-18 22:43 | XMS REPORT | Continuity of Care Document ---
:1995 Author Organization [facility] t Address [address] [facility] [address] [place] [address] Care Team Providers Name Role Phone Gina Orona Primary Care Physician Aurea Fowler Attending Clinician Unavailable WoodrowLiberty Jarvis Attending Clinician Jose Ramirez PA-C Attending Clinician JOSE RAMIREZ Attending Clinician Unavailable GAIL VIRK Attending Clinician Unavailable Only, Ang Db Test Attending Clinician Unavailable Gail Owen Attending Clinician Maryann Jc RN Attending Clinician Unavailable Doctor Unassigned, [place] Attending Clinician Unavailable Lab, Adc Fam Pob I Attending Clinician Unavailable Gina Orona Attending Clinician Aurea Fowler Admitting Clinician Unavailable Payers Payer Name Policy Type Policy Number Effective Date Expiration Date S ource Problems Condition Condition Condition Status Onset Resolution [...] BMI BMI Disease Active Univers 26.0-26.9, 26.0-26.9, 807 it y of adult adult 00:00: [place] 00 Medical Branch History of History of Disease Active U nivers one one 04-24 [place] of miscarriag [place]ag [place] of History of Disease Active U nivers sleeve sleeve 04-24 [place]y of gastrectom gastrectom [place] Papanicola Papanicola Disease Active Overview [...] gastrectom [place]rectom [place] Papanicola Papanicola Disease Active Overview : Univers ou smear ou smear 04-24 it[place] o f of cervix of [place] low with low 00 Medica l 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) Arthralgia Arthralgia Disease Active U nivers of both of both 4-06 ity of knees knees 00:00: [place] 00 Medical Branch Allergies, Adverse Reactions, Alerts Allergy Allergy Status Severity Reaction(s) Onset Inactive Treating Comm ents Source Name Type Date Date Clinician ONDANSET DRUG Active ITCHING Univers MARIANA HCL INGREDI 5-08 ity of 00:00: [place] 00 Medical Branch Ondanset Propensi Active Itching Unive rs mariana Hcl ty to 5-08 ity of adverse 00:00: [place] reaction 00 Medical s Branch No Known DA Active U 2019-0 [facility]ie [facility] [place] ondanset DA Active U 2019-0 [facility] mariana 4- [facility] 00:[facility] [place] ondanset DA Active U ITCHING, [facility] mariana TONGUE 4- Woman's SWELLED 00:00: [facility] [place] No Known DA Active U 2019-0 [facility] Allergie 4 Woman's s 00:[facility]: [facility] [place] No Known DA Active U 2019-0 [facility] Allergie 10-15 [facility] s 00:[facility]: [facility] [place] No Known DA Active U 2019-0 [facility] Allergie 10-15 [facility] s 00:[facility]: [facility] [place] NO KNOWN Drug Active Univers ALLERGIE Class ity of S [facility] Social History Social Habit Start Date Stop Date Quantity Comments Source ASSERTION 2019-04-03 [facility] 00:00:00 [facility] Exposure to 2022-01-13 2022-01-23 Not sure [facility] SARS-CoV-2 (event) 00:00:00 16:25:00 Medica l Branch Alcohol intake 2022-01-23 2022-01-23 0 /d [facility] 00:00:00 00:00:00 [facility] Tobacco use and 2020-03-25 2020-03-25 Never used [facility] exposure 00:00:00 00:00:00 [facility] Sex [birth year] [facility] 00:00:00 00:00:00 [facility] Smoking Status Start Date Stop Date Source Never smoker [facility] Medications Ordered Filled Start Stop Current Ordering Indication Dosage Frequency Signature Comments Components Source Medication Medication Date Date Medication? Clinician (SIG) Name Name mometasone Yes [id number] 1{spray Use 1 Univers (NASONEX) 5-08 } Lynndyl in ity of 50 00:00: each [place] mcg/actuati 00 nostril Medic al on nasal daily. Branch spray amoxicillin 2021- No [id number] 875mg Take 1 Univers 875 mg 5-08 05-16 tablet by ity of tablet 00:00: 04:59 mouth 2 [place] 00 :00 (two) Medical times Branch daily for 7 days. BLISOVI FE Yes 1{tbl} Take 1 Uni vers /20, 28, 1 4-15 tablet by ity of mg-20 mcg 00:00: mouth [place] (21)/75 mg 00 daily. Medical (7) tablet Branch 2019- Yes Take by [employer] vit 0-07 mouth. ity of calc,iron,f 14:20: [place] [address] Medical ( Branch VITAMIN ORAL) 2019- Yes Take by [employer] vit 0-07 mouth. ity of calc,iron,f 14:20: [place] [address] Medical ( Branch VITAMIN ORAL) 2019 Yes Take by [employer] s vit 0-07 mouth. ity of calc,iron,f 14:20: [address] ( Branch VITAMIN ORAL) 2019 Yes Take by [employer] s vit 0-07 mouth. ity of calc,iron,f 14:20: [place] [address] Medical ( Branch VITAMIN ORAL) 2019- Yes Take by [employer] s vit 0-07 mouth. ity of calc,iron,f 14:20: [place] [address] Medical ( Branch VITAMIN ORAL) 2019- Yes Take by [employer] vit 0-07 mouth. ity of calc,iron,f 14:20: [place] [address] Medical ( Branch VITAMIN ORAL) 2019- Yes Take by [employer] vit 0-07 mouth. ity of calc,iron,f 09:20: [place] [address] Medical ( Branch VITAMIN ORAL) 2019- Yes Take by [employer] vit 0-07 mouth. ity of calc,iron,f 09:20: [place] [address] Medical ( Branch VITAMIN ORAL) 2019-0 Yes Take by [employer] vit 9-09 mouth. ity of calc,iron,f 14:19: [place] [address] Medical ( Branch VITAMIN ORAL) 2019-0 Yes Take by [employer] vit 9-09 mouth. ity of calc,iron,f 14:19: [place] [address] Medical ( Branch VITAMIN ORAL) 2019-0 Yes Take by [employer] vit 9-09 mouth. ity of calc,iron,f 14:19: [place] olic 33 Medical ( Branch VITAMIN ORAL) ergocalcife 2018- Yes Take by Uni vers rol, 8-07 mouth. ity of vitamin D2, 14:53: [place] (VITAMIN D 43 Medical ORAL) Branch ergocalcife 2018- Yes Take by Uni vers rol, 8-07 mouth. ity of vitamin D2, 14:53: [place] (VITAMIN D 43 Medical ORAL) Branch ergocalcife 2018- Yes Take by Uni vers rol, 8-07 mouth. ity of vitamin D2, 14:53: [place] (VITAMIN D 43 Medical ORAL) Branch ergocalcife 2018- Yes Take by Uni vers rol, 8-07 mouth. ity of vitamin D2, 14:53: [place] (VITAMIN D 43 Medical ORAL) Branch ergocalcife 2018- Yes Take by Uni vers rol, 8-07 mouth. ity of vitamin D2, 14:53: [place] (VITAMIN D 43 Medical ORAL) Branch ergocalcife 2018- Yes Take by Uni vers rol, 8-07 mouth. ity of vitamin D2, 14:53: [place] (VITAMIN D 43 Medical ORAL) Branch ergocalcife 2018- Yes Take by Uni vers rol, 8-07 mouth. ity of vitamin D2, 14:53: [place] (VITAMIN D 43 Medical ORAL) Branch ergocalcife 2018- Yes Take by Uni vers rol, 8-07 mouth. ity of vitamin D2, 14:53: [place] (VITAMIN D 43 Medical ORAL) Branch ergocalcife 2018- Yes Take by Uni vers rol, 8-07 mouth. ity of vitamin D2, 14:53: [place] (VITAMIN D 43 Medical ORAL) Branch ergocalcife 2018-0 Yes Take by Uni vers rol, 8-07 mouth. ity of vitamin D2, 14:53: [place] (VITAMIN D 43 Medical ORAL) Branch ergocalcife 2018- Yes Take by Uni vers rol, 8-07 mouth. ity of vitamin D2, 14:53: [place] (VITAMIN D 43 Medical ORAL) Branch ergocalcife 2018- Yes Take by Uni vers rol, 8-07 mouth. ity of vitamin D2, 14:53: [place] (VITAMIN D 43 Medical ORAL) Branch 2018-0 Yes Take by Univer s vit 8-07 mouth. ity of calc,iron,f 14:53: [place] [address] Medical ( Branch VITAMIN ORAL) Yes Take by Univer s vit 8-07 mouth. ity of calc,iron,f 14:53: [place] [address] Medical ( Branch VITAMIN ORAL) Yes Take by Univer s vit 8-07 mouth. ity of calc,iron,f 14:53: [address] ( Branch VITAMIN ORAL) ergocalcife Yes Take by Uni vers rol, 8-07 mouth. ity of vitamin D2, 09:53: [place] (VITAMIN D 43 Medical ORAL) [place] ergocalcife Yes Take by Uni vers rol, 8-07 mouth. ity of vitamin D2, 09:53: [place] (VITAMIN D 43 Medical ORAL) [place] diclofenac Yes 75mg Take 1 Tab U nivers (VOLTAREN) 406 by mouth 2 ity of 75 mg EC 00:00: (two) [place] tablet 00 times Medical daily with Branch meals. diclofenac 2018- No 75mg Take 1 Tab Univers (VOLTAREN) 12-22-07 by mouth 2 it y of 75 mg EC 00:00: 00:00 (two) [place] tablet 00 :00 times Medical daily with Branch meals. diclofenac 2018- No 75mg Take 1 Tab Univers (VOLTAREN) 12-22 08-07 by mouth 2 it y of 75 mg EC 00:00: 00:00 (two) [place] tablet 00 :00 times Medical daily with Branch meals. LOESTRIN Yes Univer s (MICROGESTI 3-25 ity of N FE 10/07, 00:00: [place] 28,) 1 00 Medical mg-20 mcg Branch (21)/75 mg (7) tablet LOESTRIN 2018- No Unive rs (MICROGESTI 3-25 08-07 ity of N FE 10/07, 00:00: 00:00 [place] 28,) 1 00 :00 Medical mg-20 mcg Branch (21)/75 mg (7) tablet LOESTRIN FE 2018- No Unive rs (MICROGESTI 3-25 08-07 ity of N FE 10/07, 00:00: 00:00 [place] 28,) 1 00 :00 Medical mg-20 mcg Branch (21)/75 mg (7) tablet VYVANSE 40 Yes Univers mg capsule 2-10 ity of 00:00: [place] 00 Medical Branch VYVANSE 40 2019- No Univer s mg capsule 10-28- ity of 00:00: 00:00 [place] 00 :00 Medical Branch VYVANSE 40 2019- No Univer s mg capsule 10-28 ity of 00:00: 00:00 [place] 00 :00 Medical Branch Vital Signs Vital Name Observation Time Observation Value Comments Source Systolic blood 2022-01-23 22:04:00 116 mm[Hg] Univer sity of pressure [facility] Diastolic blood 2022-01-23 22:04:00 73 mm[Hg] Unive rsity of [facility] Heart rate 2022-01-23 22:04:00 74 /min Universi ty [facility] Body temperature 2022-01-23 22:04:00 36.78 Courtney [facility] Respiratory rate 2022-01-23 22:04:00 17 /min [facility] Body height 2022-01-23 22:04:00 167.6 cm Universi ty [facility] Body weight 2022-01-23 22:04:00 88.536 kg Universi ty [facility] BMI 2022-01-23 22:04:00 31.50 kg/m2 [facility] Oxygen saturation in 2022-01-23 22:04:00 97 /min University Arterial blood by [facility] Pulse oximetry Branch Systolic blood 2019-05-27 13:58:00 106 mm[Hg] Univer sity of [facility] Diastolic blood 2019-05-27 13:58:00 69 mm[Hg] Unive rsity of [facility] Heart rate 2019-05-27 13:58:00 82 /min Universi ty [facility] Body temperature 2019-05-27 13:58:[address] [facility] Respiratory rate 2019-05-27 13:58:00 16 /min [facility] Body height 2019-05-27 13:58:00 167.6 cm Universi ty [facility] Body weight 2019-05-27 13:58:00 75.552 kg Universi ty [facility] BMI 2019-05-27 13:58:00 26.88 kg/m2 Universi ty [facility] Systolic blood 2019-04-24 14:35:00 92 mm[Hg] Univer sity of pressure [facility] Diastolic blood 2019-04-24 14:35:00 62 mm[Hg] Unive rsity of [facility] Heart rate 2019-04-24 14:35:00 60 /min Universi ty [facility] Body temperature 2019-04-24 14:35:[address] [facility] [address] [facility] Respiratory rate 2019-04-24 14:35:00 16 /min [facility] Body height 2019-04-24 14:35:00 167.6 cm Universi [facility] Body weight 2019-04-24 14:35:00 76.374 kg Universi [facility] BMI 2019-04-24 14:35:00 27.18 kg/m2 [facility] Procedures Procedure Date / Time Performed Performing Clinician [facility] e ASSIGNMENT OF BENEFITS 2021-05-29 17:36:45 Doctor Unassigned, No General acute hospital [id number] 2019-12-23 00:00:00 MONMA.05 [facility] [id number] 2019-12-23 00:00:00 MONMA.05 [facility] POCT URINALYSIS W/O 2019-05-27 14:16:00 [facility] SPECIFIC GRAVITY [facility] POCT TEST 2019-04-24 14:28:00 Gina Rodriguez [facility] POCT URINALYSIS W/O 2019-04-24 14:28:[address] [facility] GRAVITY [facility] ASSIGNMENT OF BENEFITS 2019-04-24 13:39:32 Doctor Unassigned, No General acute hospital Encounters Start End Encounter Admission Attending Care Care Encounter Source Date/Time Date/Time Type Type Clinicians Facility Department ID 2020-01-01 Inpatient Laurie [facility] [id number] [facility] 06:56:[address] [place] [address] 2019-12-23 Inpatient WALKER FowlerWH AKOSUA [id number] [facility] 06:35:00 Marelli [facility] [place] 2019-10-15 Inpatient SRI Fowler AKOSUA [id number] [facility] 19:51:00 Marelli [facility] [place] 2022-01-23 2022-01-23 Urgent Liberty Troy [facility] 1.2.840 .114 [id number] Univers 17:20:00 17:40:00 Care Jose Ramirez [facility] 350.1.13.10 ity of [place] 4.2.7.2.686 [place] as CHINMAY?BLEA [id number] [address] OFFICE [facility] 2022-01-23 2022-01-23 Outpatient Daina RAMIREZ [facility] [id number] Univers 17:20:00 17:20:00 JOSE [facility] 2021-08-26 2021-08-26 Outpatient Daina VIRK [facility] [id number] Univers 16:45:00 [facility]46[facility] 2021-08-26 2021-08-26 Laboratory Only, Ang Db Test [facility] 1.2.8 40.114 [id number] Univers 16:36:02 16:51:02 Only Moose [facility] 350.1.13.10 ity [facility] 4.2.7.2.686 [place] as [place]MA[place]?BLEA [id number] [address] 2021-05-30 2021-05-30 Telephone JOSE Jc 1.2.667.058 [id number] Univers 00:00:00 00:00:00 Maryann COOLEY 350.1.13.10 i ty of [facility] 4.2.7.2.686 [place] [id number] [address] 2021-05-29 2021-05-29 Outpatient Daina VIRK [facility] [id number] Univers 19:45:00 19:45:00 [facility] 2021-05-29 2021-05-29 Laboratory Only, Ang Db Test [facility] 1.2.8 40.114 [id number] Univers 12:37:39 12:47:39 Only Gail Virk [facility] 350.1.13.10 ity of [place] 4.2.7.2.686 [place] as Chinmay?Blea [id number] Ct dical sachiey [address] [place] [facility] 2021-05-29 2021-05-29 Orders Doctor JOSE 1.2.840.114 [id number] Univers 00:00:00 00:00:00 Only Unassigned, LENORA 350.1.13.10 ity of [place] [facility] 4.2.7.2.686 [place] as [id number] [address] 2020-07-14 2020-07-14 Outpatient R MOOSE [facility] [id number] Univers 19:00:00 19:00:00 [facility] 2020-07-14 2020-07-14 Laboratory Lab, Adc Fam Pob I [facility] 1.2. 840.114 [id number] Univers 18:08:46 18:28:46 Only [facility] 350.1.13.10 ity [facility] 4.2.7.2.686 [place] as Professio [phone] [address] [facility] [address] [place] [facility] One 2020-07-14 2020-07-14 Outpatient R MOOSE [facility] [id number] Univers 18:20:00 18:20:00 [facility] 2020-07-14 2020-07-14 Outpatient R [facility] [id number] Univers 13:40:00 [facility]40[facility] 2019-05-27 2019-05-27 Routine [facility] 1.2.378.131 [id number] Univers 08:46:01 09:11:08 Gina Hawk RADIATOR CORE TESTER 350.1.13.10 i ty of Visit REGIONAL 4.2.7.2.686 [place] as MATERNAL [id number] Med ical & CHILD [address] [place] [address] 2019-05-27 2019-05-27 [facility] 1.2.840.114 [id number] 00:00:00 00:00:00 Gina N RADIATOR CORE TESTER 350.1.13.10 REGIONAL 4.2.7.2.686 MATERNAL [id number] & CHILD [address] [place] [address] 2019-05-27 2019-05-27 Telephone [facility] 1.2.840.114 [id number] Univers 00:00:00 00:00:00 Gina N RADIATOR CORE TESTER 350.1.13.10 it y of [facility] 4.2.7.2.686 [place] as MATERNAL [id number] [facility] & [address] 2019-04-24 2019-04-24 Initial [facility] [id number] Univers 09:26:44 10:14:16 Gina Hawk RADIATOR CORE TESTER 350.1.13.10 i ty of Visit [facility] 4.2.7.2.686 [place] as MATERNAL [id number] [facility] & CHILD [address] [place] [address] 2019-04-24 2019-04-24 Orders Doctor JOSE 1.2.840.114 [id number] Univers 00:00:00 00:00:00 Only Unassigned, LENORA 350.1.13.10 ity of [place] [facility] 4.2.7.2.686 [place] as [id number] [address] 2019-04-24 2019-04-24 Telephone [facility] 1.2.840.114 [id number] Univers 00:00:00 00:00:00 Gina Hawk RADIATOR CORE TESTER 350.1.13.10 it y of [facility] 4.2.7.2.686 [place] as MATERNAL [id number] [facility] & CHILD [address] [place] [address] Results Test Description Test Time Test Comments Results Result Comments Source HGB HCT 2019-12-24 06:22:00 Test Item Value Reference Range Interpretation Comme nts HEMOGLOBIN (test code = HGB) 10.6 g/dL 10.7-13.9 L HEMATOCRIT (test code = HCT) 31.8 % 32.1-42.1 L AG HEPATITIS B [id number] 10:08:00 Test Item Value Reference Range Interpretation Comments AG HEPATITIS B SURFACE (test code NONREACTIVE NONREACTIVE = HBSAG) IS CONSENT FORM SIGNED FOR HIV TESTING? YAB HEPATITIS C [id number] 10:08:00 Test Item Value Reference Range Interpretation Comments AB HEPATITIS C (test code = NONREACTIVE NONREACTIVE HCVAB) SIGNAL TO CUTOFF (test code = 0.21 <0.80 N CUTOFF) IS CONSENT FORM SIGNED FOR HIV TESTING? YAB [id number] 10:08:00 Test Item Value Reference Range Interpretation Comments AB TREPONEMA (test code = TREPAB) NONREACTIVE NONREACTIVE IS CONSENT FORM SIGNED FOR HIV TESTING? YAB HIV 1 10:08:00 Test Item Value Reference Range Interpretation Comments AB HIV 1 2 (test NONREACTIVE NONREACTIVE [facility] code = [id number]) 4th Gen HIV Ag/Ab Combo Screen IS CONSENT FORM SIGNED FOR HIV TESTING? YAG HEPATITIS B [id number] 09:51:00 Test Item Value Reference Range Interpretation Comments AG HEPATITIS B SURFACE (test code NONREACTIVE NONREACTIVE = HBSAG) IS CONSENT FORM SIGNED FOR HIV TESTING? YAB HEPATITIS C [id number] 09:51:00 Test Item Value Reference Range Interpretation Comments AB HEPATITIS C (test code = HCVAB) NONREACTIVE SIGNAL TO CUTOFF (test code = CUTOFF) <0.80 IS CONSENT FORM SIGNED FOR HIV TESTING? YAB [id number] 09:51:00 Test Item Value Reference Range Interpretation Comments AB TREPONEMA (test code = TREPAB) NONREACTIVE NONREACTIVE IS CONSENT FORM SIGNED FOR HIV TESTING? YAB HIV 1 09:51:00 Test Item Value Reference Range Interpretation Comments AB HIV 1 2 (test code = WKT51YS) NONREACTIVE IS CONSENT FORM SIGNED FOR HIV TESTING? YCBC W/AUTO [id number] 08:53:00 Test Item Value Reference Range Interpretation [...] NORMAL NORMAL code = PLTMR) RUPTURE OF [id number] 08:40:00 Test Item Value Reference Range Interpretation Comments RUPTURE OF MEMBRANES (test code = RUPTURED ROM) - US FET BIO PH PA W/O [id number] 07:53:00 Patient Name: NELLIE SINHA Unit No: [id number] EXAMS: CPT CODE: [id number] US FET BIO PH PA W/O NST 43460 [facility] [address] [address] BIOPHYSICAL PROFILE ULTRASOUND REPORT Pat. Name: NELLIE SINHA Pat. No: [id number] Study Date: 12/23/2019 7:14am , Age: 11 1995, 24 Pregnancies: 2, Para 0 LMP: Unknown GA by 1st: 38w5d GA Selected: 38w5d (From First S) SCOTT: 01/01/2020 [employer] Operator: Liberty Singletary CPT4: USBPPWONST Admitting MD: AUREA FOWLER Hist/Ind: SCAN 2 [place] Heart Rate: 127 bpm AmnioticFluid Index: 16.4cm (07.2-23.0) Q1: 4.8cm Q2: 5.9cm Q3: 2.4cm Q4: 3.4cm Biophysical Profile: 04/25 Breathin Tone: 2 Movement: 2 AFV: 2 MATERNAL ANATOMY Ovaries LxHxW (cm) Right 2.8 x 1.5 x 1.5 Vol: 3.3cc Left 2.6 x 1.8 x 2.2 Vol: 5.4cc CLINICAL SUMMARY Type of Gestation: Mendez Intrauterine in vertex prese ntation. motion and organs seen: heart motion seen body and limb movements observed tone noted breathing movements observed Placental location: Anterior Placental maturity: Grade 2 There is no evidence of placenta previa. Amniotic fluid volume is normal. Uterus and adnexa: No significant abnormality is seen. Thank you for allowing us to participate in the care of this patient. Dalton Mccoy M.D. Electronic Signature 12/23/2019 07:53am [facility] NAME: ODALISNELLIE Radiology Department PHYS: Aurea Thomas DO [address] : 1995 AGE: 24 SEX: F [place] [address] LOC: Kanchan.AKOSUA PHONE #: [phone] EXAM DATE: 12/23/2019 STATUS: REG ER FAX #: [phone] RAD NO: Page 1 Signed Report (CONTINUED) Patient Name: NELLIE SINHA Unit No: [id number] EXAMS: CPT CODE: [id number] US FET BIO PH PA W/O NST 81327 (Continued) at 0753 Reported and signed by: Dalton Mccoy MD CC: Aurea Fowler DO Technologist: Liberty Singletary RDMS Probe: Trnscrbd D/ (0753) t.DIMITRIRDenaYOS Orig Print D/T: S: 12/23/2019 (0753) [facility] NAME: ODALISNELLIE Radiology Department PHYS: Aurea Thomas DO [address] : 1995 AGE: 24 SEX: F [place] [address] LOC: MaicolAKOSUA PHONE #: [phone] EXAM DATE: 12/23/2019 STATUS: REG ER FAX #: [phone] RAD NO: Page 2 Signed Report Patient Name: NELLIE SINHA Unit No: [id number] EXAMS: CPT CODE: [id number] US FET BIO PH PA W/O NST 03608 (Continued) [facility] [place] NAME: NELLIE SINHA Radiology Department PHYS: HERNANDEZ Vega Aurea bautista DO [address] : 1995 AGE: 24 SEX: F [place], [place] [address] LOC: F.AKOSUA PHONE #: [phone] EXAM DATE: 12/23/2019 STATUS: REG ER FAX #: [phone] RAD NO: Page 3 Signed Report- US PREG UT [id number] 21:44:00 Patient Name: NELLIE SINHA J Unit No: [id number] EXAMS: CPT CODE: [id number] US PREG [place] TRANSVAGINAL 05511 Limited obstetrical ultrasound with transvaginal imaging of [...] 2.7 cm and the left ovary measures 2.7x 1.0 x 2.0 cm. The ovaries maintain normal echotexture. Ovarian blood flow is visualized bilaterally using Doppler ultrasound. No adnexal masses or pelvic fluid collections are identified. IMPRESSION:1. Single living intrauterine in cephalic position. 2. Amniotic fluid volume is increased with a measured BRITTANY of 20.6. SL: 131 at 2144 Reported and signed by: Braden Rocha MD CC: Aurea Fowler DO Technologist: Sandra Alcaraz RDMS, RVT Probe: [id number] Trnscrbd D/ (2143) [place] Orig Print D/T: S: 10/15/2019 (2146) [facility] NAME: NELLIE SINHA Radiology [facility]YS[facility] [address] [facility] [address] : 1995 AGE: 24 SEX: F [place] [address] LOC: MaicolAKOSUA PHONE #: [phone] EXAM DATE: 10/15/2019 STATUS: REG ER FAX #: [phone] NO: Page 1 Signed Report Patient Name: NELLIE SINHA Unit No: [id number] EXAMS: CPT CODE: [id number] PREG DC TRANSVAGINAL 59135 (Continued) [facility] [place] NAME: NELLIE SINHA Radiology [facility] PHYS[facility] [address] [facility] [address] : 1995 AGE: 24 SEX: F [place] [address] LOC: MaicolAKOSUA PHONE #: [phone] EXAM DATE: 10/15/2019 STATUS: REG ER FAX #: [phone] RAD NO: Page 2 Signed Report- US [id number] 21:44:00 Patient Name: NELLIE SINHA Unit No: [id number] EXAMS: CPT CODE: [id number] [place] [address] Limited obstetrical ultrasound with transvaginal imaging of the cervix dated 10/15/2019. HISTORY: 28.6 week . Abdominal pain. A limited transabdominal obstetrical ultrasound was performed andreveals the presence of a single intrauterine in cephalic position. cardiac activityis documented with a heart rate of 121 [...] Britta Cardenas MD Technologist: Sandra Alcaraz RDMS, T Probe: Trnscrbd D/ (2143) t.[email or web address] Orig Print D/T: S: 10/15/2019 (2146) [facility] NAME: NELLIE SINHA Radiology Department PHYS: Britta Medel MD [address] : 1995 AGE: 24 SEX: F [place] [address] LOC: MaicolAKOSUA PHONE #: [phone] EXAM DATE: 10/15/2019 STATUS: REG ER FAX #: [phone] RADNO: Page 1 Signed Report Patient Name: NELLIE SINHA Unit No: [id number] EXAMS: CPT CODE: [id number] LTD 05350 (Continued) [facility] NAME: NELLIE SINHA Radiology Department PHYS: Birtta Medel MD [address] : 1995 AGE: 24 SEX: F [place] [id number] LOC: MaicolAKOSUA PHONE #: [phone] EXAM DATE: 10/15/2019 STATUS: REG ER FAX #: [phone] RAD NO: Page 2 Signed ReportURINALYSIS COMPLETE 2019-10-15 20:39:00 Test Item Value Reference Range Interpretation [...] PH DIPSTICK (test code = 5.0 5-9 ROI) UA PROTEIN DIPSTICK (test NEGATIVE NEG code [...] URINE SAMPLE: CLEAN CATCHPOCT URINALYSIS W/O SPECIFIC [id number] 14:16:00 Test Item Value Reference Range Interpretation [...] code = 3257) . Negative - Negative [facility] [id number] 14:29:00 Test Item Value Reference Range Interpretation Comments POCT PREG (test code = 1605) Positive On board controls acceptable with C Yes Line (test code = 3574) POCT PREG LOT # (test code = 3575) POCT PREG TEST DATE (test code = 3576) [facility] [id number] 14:29:00 Test Item Value Reference Range Interpretation Comments POCT PREG (test code = 1605) Positive On board controls acceptable with C Yes Line (test code = 3574) POCT PREG LOT # (test code = 3575) POCT PREG TEST DATE (test code = 3576) [facility] [id number] 14:28:00 Test Item Value Reference Range Interpretation [...] code = 3257) neg Negative - Negative [facility]CIFIC [id number] 14:28:00 Test Item Value Reference Range Interpretation [...] code = 3257) neg Negative - Negative [facility] Notes Date/Time Note Provider Source 2019-12-25 08:12:00-00:00 [facility] ([facility]) OB Postpart Progr Note REPORT#:[id number] REPORT STATUS: Signed DATE:12/25/19 TIME: 811 PATIENT: NELLIE SINHA UNIT #: [id number] ROOM/BED: : 96 AGE: 24 SEX: F ATTEND: Ruben Fowler DO ADM AUTHOR: Kayden Burkett MD * ALL edits or amendments must be made on the el ectronic/computer document * Subjective Subjective Admission EGA (wks/days): 38 weeks EGA at delivery (wks/days): 38 weeks Status/day: post (day 2) Patient reports: Patient reports: No: complaints. Objective Nursing Documentation Review Nursing data: The data set between the solid lines has been im ported from nursing documentation. Any exceptions have been noted be low under Provider comments. Feeding preference: Provider comments on imported nursing data: [] General VS: Vital Signs Date Temp Pulse Resp B/P B/P Mean Pulse Ox FiO2 12/23 98.7 69 20 105-108/65-68 Last Documented: Result Date Time B/P 10865 12/23 1756 Pulse 69 12/23 1756 Resp 20 12/23 1756 Temp 98.7 12/23 0840 B/P Mean 81.0 12/22 2130 Patient Weight Weight (lb): 193 Weight (oz): Weight (kg): 87.925108 Physical Exam Lungs: clear to auscultation, no rales, no rhonc hi Abdomen: soft, no abnormal tenderness, no guardi ng Uterus: involution appropriate, non-tender Fundus: firm, below the umbilicus, non-tender Lochia: normal Lacerations: Perineal laceration(s): 2nd Degree Diagnosis, Assessment Plan Diagnosis, Assessment Plan Assessment: nml progress, acute blood loss anemia Plan: routine care, circumcision toda y, discharge today Electronically Signed by Kayden Burkett MD on 0 12/25/19 at 0813 RPT #:[id number] END OF REPORT 2019-12-24 11:02:00-00:00 [facility] ([facility]) OB Postpart Progr Note REPORT#:[id number] REPORT STATUS: Signed DATE:12/24/19 TIME: 1102 PATIENT: NELLIE SINHA UNIT #: [id number] ROOM/BED: : 96 AGE: 24 SEX: F ATTEND: Ruben Fowler DO ADM AUTHOR: Aurea Fowler DO * ALL edits or amendments must be made on the [employer] document * Subjective Subjective Status/Day: post (day 1) Patient reports: Patient reports: Yes no complaints, Yes pain management effective, Yes tolerating po well, Yes voiding well, Yes tolerating ambulation, No naus ea, No vomiting Objective General VS: Vital Signs: Date Time Temp Pulse Resp B/P B/P Pulse O2 O2 F low FiO2 Mean Ox Delivery Rate 12/23 0840 98.7 69 20 105/68 12/227 97.4 75 18 112/58 /0 81.0 /2129 88 110/66 /5 87.0 /2114 88 113/74 12/22 2099 79.0 /2099 67 106/63 /2044 18 04/2044 78.0 04/2044 68 105/63 /2029 81.0 04/2029 64 107/66 12/22 2014 98.5 17 12/22 2014 81.0 /2014 73 106/66 /1999 82.0 /1999 74 109/65 /1944 17 041944 76.0 04/1944 103/59 04/0 18 04/ 1930 76.0 04/ 193 73 110/53 /1914 18 04/1914 74.0 /1914 74 118/62 04/ 1900 19 04/06 1900 83.0 04/06 1900 97.6 83 117/63 04/06 1845 98.2 04/06 1845 80.0 04/06 1845 91 111/59 04/06 1830 88.0 04/06 1830 97 119/68 04/06 1800 89.0 04/06 1800 94 137/62 04/06 1746 89.0 04/06 1746 137 130/66 04/06 1730 96.0 04/06 1730 53 123/77 04/06 1715 88.0 04/06 1715 53 121/66 04/06 1700 82.0 04/06 1700 49 118/58 04/06 1645 82.0 04/06 1645 54 116/59 04/06 1630 83.0 04/06 1630 52 117/60 04/06 1615 77.0 04/06 1615 57 109/56 04/06 1600 76.0 04/06 1600 98.4 59 18 106/56 04/06 1545 89.0 04/06 1545 50 124/65 04/06 1531 82.0 04/06 1531 55 117/59 04/06 1515 82.0 04/06 1515 57 116/62 04/06 1500 81.0 04/06 1500 56 115/56 04/06 1457 79.0 04/06 1457 53 108/60 04/06 1452 77.0 04/06 1452 45 107/59 04/06 1447 82.0 04/06 1447 53 108/65 04/06 1442 67.0 04/06 1442 60 94/52 04/06 1437 67.0 04/06 1437 64 93/51 04/06 1433 64.0 04/06 1433 60 91/52 04/06 1427 72.0 04/06 1427 68 92/62 04/06 1422 70.0 04/06 1422 61 98/53 04/06 1417 73.0 04/06 1417 62 97/54 04/06 1412 80.0 04/06 1412 52 99/68 04/06 1303 85.0 04/06 1303 56 119/64 04/06 1247 98.6 16 04/06 1232 86.0 04/06 1232 63 111/69 04/06 1202 88.0 04/06 1202 68 113/73 12/22 1132 84.0 12/22 1132 67 113/65 Patient Weight Weight (lb): 193 Weight (oz): Weight (kg): 87.817640 Physical Exam Cardiac: normal sinus rhythm, no clinically sig murmur Lungs: clear to auscultation, no rales, no rhonc hi Abdomen: soft, no abnormal tenderness, no guardi ng Uterus: involution appropriate, non-tender Lacerations: Perineal laceration(s): 2nd Degree Result Findings/Data: Laboratory Tests: 12/23 0505 Hematology Hgb (10.7 - 13.9 g/dL) 10.6 L Hct (32.1 - 42.1 %) 31.8 L Diagnosis, Assessment Plan Diagnosis, Assessment Plan Assessment: nml progress, acute blood loss anemia Plan: routine care, circumcision toda y, discharge today at 1103 RPT #:[id number] END OF REPORT 2019-12-23 18:43:00-00:00 [facility] ([facility]) OB Delivery Note REPORT#:[id number] REPORT STATUS: Signed DATE:12/23/19 TIME: 1842 PATIENT: NELLIE SINHA UNIT #: [id number] ROOM/BED: [address] : 96 AGE: 24 SEX: F ATTEND: Ruben Fowler DO ADM AUTHOR: Aurea Fowler DO * ALL edits or amendments must be made on the el [employer]computer document * OB Delivery Nursing Documentation Review Nursing data: The data set between the solid lines has been im ported from nursing documentation. Any exceptions have been noted be low under Provider comments. _ ROM date: 12/23/19 ROM time: 0530 Membranes rupture method: SROM Amniotic fluid color: Clear Amniotic fluid amount: EGA (weeks/days): 38.5 EGA at admit (weeks): EGA at delivery (weeks): Steroids prior to arrival: Antibiotic prophylaxis given: evaluation at delivery: Delivery date A: Delivery time infant A: Birthweight (gm) infant A: Weight (lb) infant A: Weight (oz) A: Gender infant A: Male 1 minute infant A: 5 minutes A: 10 minutes infant A: Cord pH obtained A: Vacuum time infant A: Vacuum # pulls infant A: Vacuum # popoffs A: QBL at delivery: __ Provider comments on imported nursing data: [] Pre-delivery GBS status: GBS status: positive Prophylaxis administered: penicillin [place] evaluation at [facility] Admission EGA (wks/days): 38 weeks EGA at delivery (wks/days): 38 weeks Baby A Information Baby A information Delivery date: 12/23/19 Delivery time: 1821 status: live born Wt of baby (grams): 3420 Gender: male 1 minute: 8 5 minutes: 9 Presentation: vertex ABG details Baby A Cord blood gases: not collected Nuchal cord Baby A Nuchal cord: no Vaginal Delivery Vaginal delivery: Labor: spontaneous Medications/Devices used: oxytocin Vaginal delivery: spontaneous Amniotic fluid: clear Anesthesia type: epidural anesthesia Episiotomy: none Episiotomy repair: no Laceration repair: yes Episiotomy/laceration suture: 2-0 Placenta: spontaneous Post delivery meds used: oxytocin Count: correct Lacerations: Perineal laceration(s): 2nd Degree Extraction details OVD performed: no Blood Loss/Details Blood loss at delivery: <1000 ml EBL at delivery (ml's): 200 at 1845 RPT #:[id number] END OF REPORT 2019-12-23 18:38:00-00:00 [facility] ([facility]) OB Admission / H P REPORT#:[id number] REPORT STATUS: Signed DATE:12/23/19 TIME: 1837 PATIENT: NELLIE SINHA UNIT #: [id number] ROOM/BED: [address] : 96 AGE: 24 SEX: F ATTEND: Ruben Fowler DO ADM AUTHOR: Aurea Fowler DO * ALL edits or amendments must be made on the [employer] document * OB Admission H P Hx Nursing Documentation Review Nursing data: The data set between the solid lines has been im ported from nursing documentation. Any exceptions have been noted be low under Provider comments. Current data Steroids prior to arrival: ROM date: 12/23/19 ROM time: 0530 EGA (weeks/days): 38.5 EGA at admit (weeks): EDC date: 01/01/20 Prior history : 2 Para: 0 Term: : Abortions spontaneous: Abortions induced: Living children: Ectopic: Stillbirths: Live births: deaths: Number of previous C/S: Reported maternal labs/data Blood type: AB Rh type: Negative Rubella: Hepatitis B: Negative HIV exposure test: VDRL: Group B beta strep: Positive Rho(D) immune globulin this preg: Monitor mode - UA: Feeding preference: Provider comments on imported nursing data: [] Chief complaint: suspected ruptured memb, vagina l bleeding HPI: @ 38w5d presented to [facility] with vagin al bleeding and suspected ROM. Patient was admitted for augmentation of labor. Prenagan cy uncomplicated. history: : 1 Term: 0 Current : EDC: 01/01/20 Admission EGA (wks/days): 38 weeks EGA based on: LMP, ultrasound, 1st trimester Labs: Blood type: AB Rh: negative Rubella: immune Hepatitis B: negative HIV: negative STD: negative Syphilis: currently negative GBS: positive Date Rhogam administered: 10/14/2019 Past medical history: denies PMH Past surgical history: denies PSH Social history: no alcohol use, no tobacco use, no drug use Allergies Coded Allergies: ondansetron (From ZOFRAN) (ITCHING, TONGUE SWELL ED 12/23/19) Review of Systems All systems rev neg: except as marked Objective General VS: Last Documented: Result Date Time B/P Mean 89.0 04/ 1746 B/P 130/66 04/06 1746 Pulse 137 04/ 1746 Temp 98.4 04/ 1600 Resp 18 / 1600 Vital Signs Date Temp Pulse Resp B/P B/P Mean Pulse Ox FiO2 /06 98.4-98.6 45-137 16-18 91-130/51-77 64.0 -96.0 Patient Weight Weight (lb): 193 Weight (oz): Weight (kg): 87.527524 Physical Exam Cardiac: regular rate and rhythm, no clinically sig murmur Lungs: clear to auscultation, no rales, no rhonc hi Abdomen: gravid, no abnormal tenderness, no guar ding Uterine activity: Monitor: toco Frequency (description): irregular Pelvic exam: Pelvis clinically adequate: yes, inlet appears appropriate, pubic bone config appropr, no midpelvic contraction Vulvar lesions: none, no evidence herpetic les, no evidence of other STD Vagina: normal, non-septated, w/o apparent lesi ons Cervical/ exam: Dilatation (cm): 3 Effacement (%): 70 Suspected macrosomia: No Suspected > 5000 grams: No station: 0 presentation: cephalic Membranes: Membranes: Intact Baby A: Baby A baseline: 135 bpm Baby A variability: moderate 6-25 bpm Baby A accelerations: 15 X 15 Baby A decelerations: none Baby A FHR category: category 1 Result Findings/Data: Laboratory Tests: 12/22 12/22 0845 0823 Hematology WBC (6.6 - 12.1 K/mm3) 11.6 RBC (3.45 - 5.01 M/mm3) 3.86 Hgb (10.7 - 13.9 g/dL) 12.0 Hct (32.1 - 42.1 %) 36.0 MCV (84.1 - 94.8 fL) 93 MCH (27 - 35 pg) 31.1 MCHC (32.2 - 34.1 gm/dL) 33.3 RDW (12.4 - 16.5 %) 12.8 Plt Count (133 - 385 K/mm3) 173 MPV (9.1 - 12.7 fl) 12.4 Neut % (Auto) (56.5 - 79.4 %) 65.0 Lymph % (Auto) (14.3 - 34.3 %) 26.5 Hinds % (Auto) (5.1 - 10.4 %) 6.1 Eos % (Auto) (0.1 - 3.0 %) 0.7 Baso % (Auto) (0.1 - 1.0 %) 0.5 Neut # (Auto) (K/mm3) 7.5 Lymph # (Auto) (K/mm3) 3.1 Hinds # (Auto) (K/mm3) 0.7 Eos # (Auto) (K/mm3) 0.08 Baso # (Auto) (K/mm3) 0.1 Other Body Source Membranes Rupture RUPTURED Serology Treponema pallidum Ab (NONREACTIVE) NONREACTIVE Hep Bs Antigen (NONREACTIVE) NONREACTIVE Hepatitis C Antibody (NONREACTIVE) NONREACTIVE Hep C Ab Signal/Cutoff (<0.80) 0.21 HIV 1 2 Antibody (NONREACTIVE) NONREACTIVE Recent Impressions: ULTRASOUND - US FET BIO PH PA W/O NST 12/22 0710 Report Impression - Status: SIGNED Entered: 12/23/2019 0753 CLINICAL SUMMARY Type of Gestation: Mendez Intrauterine in [...] care of this patient. Dalton Mccoy M.D. Impression By: Huy Mccoy MD Diagnosis, Assessment Plan Diagnosis, Assessment Plan Assessment/Impression: spont.active labor<39 wks Plan: augmentation of labor, delivery, transfer to [facility] at 1843 RPT #:[id number] END OF REPORT 2019-12-23 08:22:00-00:00 [facility] ([facility]) EMERGENCY PROVIDER REPORT REPORT#:[id number] REPORT STATUS: Signed DATE:12/23/19 TIME: 821 PATIENT: NELLIE SINHA UNIT #: [id number] [facility] AGE: 24 SEX: F PCP PHYS: Aurea Fowler DO SERVICE AUTHOR: Alfred Saunders III, MD * ALL edits or amendments must be made on the [employer] document * AKOSUA History Nursing Documentation Review Nursing data: [facility] AKOSUA 24 year old white female @ 38.5 weeks cc Vaginal bleeding, loss of fluid vaginally, de creased baby movement HPI She recently felt the loss of a mode rate amount of fluid with lite vaginal bleeding at about 5:30am. She had also noted the recent onset of decrease d baby movements. Complains of mildly painful uterine contractions. Uncomplicated pre care with Dr Fowler since about 15 weeks. Claims normal OB USG during her preg ryan. On recent pelvic exam she was found to be 1/2 cm dilated. PMH Allergies Allergy Severity Reaction Updated Coded No Known Allergies 12/23/19 OB Previous vaginal delivery PMH Denied PSH Gastric sleeve, right knee surgery. MEDS vitamin, vitamin d FMH Positive for diabetes SH No smoke, no etoh, no drugs ROS No shortness of breath, no chest pain, no na usea and vomiting, no abdominal pain. recent onset of decreased baby movements. Medications: Home Medications: Medication Dose/Rte/Freq Days Qty Entered Last Max Daily Dose Reviewed PNV WITH 1 CAP PO DAILY 10/15/19 12/23/19 CA/IRON/FA/DHA 2000 653 (PRENATE ESSENTIAL) Strength: 28 MG IRON-1 MG-300 MG CAP CHOLECALCIFEROL 1,000 UNITS PO DAILY 10/15/19 0 12/23/19 (VITAMIN D3) 2000 653 (VITAMIN D3) Strength: 1,000 UNIT CAP Current Hospital Medications: Anti-Infective Agents Sig/Shorty Start time Last Medication Dose Route Stop Time Status Admin Penicillin G 50 ML Q4H 12/22 121 AC Potassium/Dextrose IV 12/24 121 (PENICILLIN GK ISO- OSM DEXTROSE) Penicillin G 5 MILLION ONCE ONE 12/22 814 CKD Potassium IV 12/22 913 (PENICIL-G POTASSIUM 5 MILLION UNITS/VIAL) Sodium Chloride 100 ML (SODIUM CHLORIDE 0.9% 100 ML) Electrolytic, Caloric, And Yanira Sig/Shorty Start time Last Medication Dose Route Stop Time Status Admin Dextrose/Lactated 1,000 ML ASDIR 12/22 814 AC Ringer's IV 02/20 814 (DEXTROSE 5% IN LACTATED RINGERS 1000 ML) Lactated Ringer's 2,000 ML ASDIR PRN 12/22 814 AC (LACTATED RINGERS) IV Lactated Ringer's 1,000 ML ONCE ONE 12/22 814 AC (LACTATED RINGERS) IV 02/02 0014 Oxytocics Sig/Shorty Start time Last Medication Dose Route Stop Time Status Admin Oxytocin 500 ML ASDIR 12/22 814 AC (OXYTOCIN 30 UNITS/ IV 01/05 0814 500 ML NORMAL SALINE) Oxytocin 500 ML ASDIR 12/22 814 AC (OXYTOCIN 30 UNITS/ IV 12/22 181 500 ML NORMAL SALINE) Other Sig/Shorty Start time Last Medication Dose Route Stop Time Status Admin Pharmacy Profile Note 1 EA ONCE 12/22 814 AC (EPIDURAL TRAY) MISC 12/25 813 Allergies Coded Allergies: No Known Allergies (12/23/19) Objective General VS: Last Documented: Result Date Time B/P Mean 94.0 12/22 0544 B/P 124// 0644 Temp 98.4 / 0644 Pulse 85 / 0644 Resp 17 12/22 0544 Vital Signs Date Temp Pulse Resp B/P B/P Mean Pulse Ox FiO2 12/22 98.4 85 17 124/ 94.0 Patient Weight Weight (lb): 193 Weight (oz): Weight (kg): 87.800731 No acute distress, alert, normal affect Afebrile, 124/73, p 85, PUL Chest clear to auscultation CVR RRR Ab Gravid, nontender SVE Not leaking fluid, no vaginal bleeding, ROM testing is positive cervix 3m/ 70%/ effaced/ vertex at 0 station Ext No pathological edema, normal reflexes, no c long term tenderness TOCO Mild irregular uterine contractions every 2 to 4 minutes FHT Category one, accelerations are present Recent Impressions: ULTRASOUND - US FET BIO PH PA W/O NST 12/22 709 Report Impression - Status: SIGNED Entered: 12/23/2019 0753 CLINICAL SUMMARY Type of Gestation: Mendez Intrauterine in [...] care of this patient. Dalton Mccoy M.D. Impression By: Huy Mccoy MD BPP 04/25 with BRITTANY 16.4 cm Anterior placenta No pr evia Result Findings/Data: Laboratory Tests: 12/22 822 Other Body Source Membranes Rupture RUPTURED Recent Impressions: ULTRASOUND - US FET BIO PH PA W/O NST 12/22 709 Report Impression - Status: SIGNED Entered: 12/23/2019 0753 CLINICAL SUMMARY Type of Gestation: Mendez Intrauterine in [...] care of this patient. Dalton Mccoy M.D. Impression By: Huy Mccoy MD Diagnosis, Assessment Plan Diagnosis, Assessment Plan Free Text A P: Impression IUP at 38.5 weeks Early labor reassuring heart tones, recen t leaking of amniotic fluid bpp 04/25 Plan Nursing staff has spoken with Dr Fowler, to be admitted to and Delivery jr Electronically Signed by Alfred Saunders III, MD on 03/07 at 1728 RPT #:[id number] END OF REPORT 2019-10-15 20:25:00-00:00 [facility] ([facility]) EMERGENCY PROVIDER REPORT REPORT#:[id number] REPORT STATUS: Signed DATE:10/15/19 TIME: 2024 PATIENT: NELLIE SINHA UNIT #: [id number] ROOM/BED: AGE: 24 SEX: F PCP PHYS: Aurea Fowler DO SERVICE AUTHOR: Britta Cardenas MD * ALL edits or amendments must be made on the [employer]/computer document * AKOSUA History Chief complaint: decreased movement, disco mfort HPI: 24yo at 28 6/7 weeks presents wi th left low pelvic pain which began at 1600 today while laying down. States the pain is constant with intermittent sharp increases. Increases in discomfort occur a bout once per hour and last 5 min. Pain in 5/10. Pt states that she thinks the pain is related to movement. Pain is made worse by bending over. No bleeding or leaking of fluids. No contractions. Had intercourse last pm without issue. No trauma or fall. No fevers or flu like symptoms. Mi ld nausea. No vomiting and normal BMs. Reports decreased movement today until arrived here and now back to normal. history: : 2 Term: 0 Abortus: 1 Living children: 0 Current : EDC: 01/01/20 EGA (weeks/days): 28 6/7 weeks Past medical history: abnormal pap Past surgical history: gastric sleeve, right kne e Social history: no alcohol use, no tobacco use, no drug use Family history Family history was reviewed; no changes noted. Medications: Home Medications: Medication Dose/Rte/Freq Days Qty Entered Last Max Daily Dose Reviewed PNV WITH 1 CAP PO DAILY 10/15/19 10/15/19 CA/IRON/FA/DHA 2000 2204 (PRENATE ESSENTIAL) Strength: 28 MG IRON-1 MG-300 MG CAP CHOLECALCIFEROL 1,000 UNITS PO DAILY 10/15/19 0 10/15/19 (VITAMIN D3) 2000 2204 (VITAMIN D3) Strength: 1,000 UNIT CAP Current Hospital Medications: Autonomic Drugs Sig/Shorty Start time Last Medication Dose Route Stop Time Status Admin Terbutaline Sulfate 0.25 MG Q20M PRN 10/15 2199 AC 10/15 (TERBUTALINE 1 MG/ML SUBQ 2225 1 ML AMP) Allergies Coded Allergies: No Known Allergies (10/15/19) Review of Systems All systems rev neg: except as marked Objective General VS: Last Documented: Result Date Time B/P Mean 81.0 10/15 1958 B/P 115/59 10/15 1958 Temp 98.6 10/15 1958 Pulse 78 10/15 1958 Resp 17 10/15 1958 Vital Signs Date Temp Pulse Resp B/P B/P Mean Pulse Ox FiO2 10/15 98.6 78 17 115/59 81.0 Patient Weight Weight (lb): Weight (oz): Weight (kg): 83.176622 115/59 78 17 98.6 Physical Exam HEENT: normocephalic w/o injury Cardiac: normal rhythm Lungs: clear to auscultation Neuro: Exam: alert, oriented x3, normal speech Abdomen: gravid, soft, tender on left suprapubic abdominal wall Uterine activity: Monitor: toco Frequency (description): irritability Cervical/ exam: Dilatation (cm): 0 - closed Effacement (%): 0 station: - 3 presentation: cephalic FHR evaluation: Baseline: 120 bpm Variability: moderate 6-25 bpm Accelerations: 15 X 15 Decelerations: none FHR category: category 1 Membranes: Membranes: Intact Lower extremities: Edema: none Result Findings/Data: Laboratory Tests: 10/15 2013 Urines Urine Color (YELLOW) YELLOW Urine Appearance (CLEAR) Slightly-Cloudy Urine pH (5 - 9) 5.0 Ur Specific [place] (1.001 - 1.035) 1.020 Urine Protein (NEG) NEGATIVE Urine Glucose (UA) (NEG) NEGATIVE Urine Ketones (NEG) NEGATIVE Urine Blood (NEG) NEG Urine Nitrite (NEG) NEG Urine Bilirubin (NEG) NEGATIVE Urine Urobilinogen (NEG mg/dL) 2.0 Ur Leukocyte Esterase (NEG) TRACE H Urine RBC (NONE SEEN #/hpf) 0-2 Urine WBC (NONE SEEN #/hpf) 6-10 H Ur Epithelial Cells (RARE - FEW #/HPF) MODERATE H Urine Bacteria (RARE - FEW /HPF) RARE Urine Mucus (NONE SEEN) 2+ Recent Impressions: ULTRASOUND - US PREG UT TRANSVAGINAL 10/15 2101 Report Impression - Status: SIGNED Entered: 10/15/20192146 IMPRESSION: 1. Single living intrauterine in cepha lic position. 2. Amniotic fluid volume is increased with a ro sured BRITTANY of 20.6. SL: 131 Impression By: Slivia Oleary ULTRASOUND - US LTD 10/15 2101 Report Impression - Status: SIGNED Entered: 10/15/20192146 IMPRESSION: 1. Single living intrauterine in cepha lic position. 2. Amniotic fluid volume is increased with a ro sured BRITTANY of 20.6. SL: 131 Impression By: Silvia Oleary Diagnosis, Assessment Plan Diagnosis, Assessment Plan Free Text A P: 24 yo at 28 6/7 weeks with abdom inal pain- [place] contractions- Pt was found to have uterine irritabilit y on monitoring with a normal cervical exam and length. Irritability resolved with jerrica michelet x 2 and pt is having no further pain. No evidence of abruption, UTI or G I etiology. Discussed importance of po hydration throughout the day Decreased movement- Now improved. Category 1 FHT Borderline polyydramnios- di scussed possible etiologies. Informed pt of need to report number to primary OB at follow up D/C home Kick counts Return prn or for bleeding, leaking, contactions , decreased movement Electronically Signed by Britta Cardenas MD on at 2247 RPT #:[id number] END OF REPORT
[2023-03-18] MEDS ORDERED: FAMOTIDINE 20 MG/2 ML VIAL IV ONE (23:23)
[2023-03-18] MEDS ORDERED: NA CHLORIDE 0.9% 1,000 ML ONE (23:24)
[2023-03-18 23:36] LABS: Absolute Lymphocytes (CBC) 1.2 K/uL (0.7-4.9); Hematocrit 39.1 % (36.0-45.0); Lymphocytes % 12.3 % (15.3-44.8); MCV 91.5 fL (80-100); MPV 9.4 fL (7.6-11.3); RBC Red Blood Cell Count 4.27 M/uL (3.86-4.86)
[2023-03-18] MEDS ORDERED: NA CHLORIDE 0.9% 250 ML ONE (23:45)
[2023-03-18] MEDS ORDERED: PROMETHAZINE INJ 25 MG/ML AMP ONE (23:45)
[2023-03-18 23:54] LABS: Albumin 3.9 g/dL (3.4-5.0); Bilirubin Total 0.9 mg/dL (0.2-1.0); Potassium 3.7 mEq/L (3.5-5.1); Protein, Total 7.4 g/dL (6.4-8.2)
[2023-03-19 00:47] LABS: Specific Gravity 1.028 (1.005-1.030)
[2023-03-19 00:49] LABS: Specific Gravity 1.028 (1.005-1.030); Urine Bacteria <20 /HPF (<20); Urine Bilirubin NEGATIVE (Negative); Urine Blood Trace (Negative); Urine Clarity Turbid (Clear); Urine Color Light-Yellow (Yellow); Urine Glucose NEGATIVE (Negative); Urine Mucus 1+ /HPF (None Seen); Urine Protein TRACE (Negative); Urine RBC <5 /HPF (None Seen); Urine Urobilinogen Normal (Normal); Urine pH 5.5 (5.0-7.0)
[2023-03-19] MEDS ORDERED: KETOROLAC 30 MG/ML INJ ONE (01:23)
--- NOTE | 2023-03-19 02:23 | ER ---
Nurse's Notes [facility] Name: María Knight Age: 27 yrs Sex: Female : 1995 Arrival Date: 03/18/2023 Time: 22:40 Bed 19 Private MD: Diagnosis: Infectious gastroenteritis and colitis, unspecified;Gastritis, unspecified, without bleeding Presentation: 03/18 22:55 Chief complaint: Patient states: "I have been vomiting and having diarrhea. My stomach as6 hurts really bad". Coronavirus screen: At this time, the client does not indicate any symptoms associated with coronavirus-19. Ebola Screen: No symptoms or risks identified at this time. Initial Sepsis Screen: Does the patient meet any 2 criteria? No. Patient's initial sepsis screen is negative. Does the patient have a suspected source of infection? No. Patient's initial sepsis screen is negative. Risk Assessment: Do you want to hurt yourself or someone else? Patient reports no desire to harm self or others. Onset of symptoms was March 18, 2023. 22:55 Method Of Arrival: Ambulatory as6 22:55 Acuity: SAMREEN 3 as6 Triage Assessment: 23:47 General: Appears in no apparent distress. uncomfortable, ill, Behavior is calm, vc1 cooperative, appropriate for age. Pain: Complains of pain in abdomen. EENT: No deficits noted. No signs and/or symptoms were reported regarding the EENT system. Neuro: Level of Consciousness is awake, alert, obeys commands, Oriented to person, place, time, situation, Appropriate for age. Cardiovascular: No deficits noted. Respiratory: Airway is patent Respiratory effort is even, unlabored, Respiratory pattern is regular, symmetrical. GI: Abdomen is flat, non-distended, Reports lower abdominal pain, upper abdominal pain, diarrhea, nausea, vomiting. : No deficits noted. No signs and/or symptoms were reported regarding the genitourinary system. Derm: No deficits noted. No signs and/or symptoms reported regarding the dermatologic system. Musculoskeletal: No deficits noted. No signs and/or symptoms reported regarding the musculoskeletal system. 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 - Social history:: Smoking status: Patient denies any tobacco usage or history of. Screenin:47 [facility] ED Fall Risk Assessment (Adult) History of falling in the last 3 months, vc1 including since admission No falls in past 3 months (0 pts) Confusion or Disorientation No (0 pts) Intoxicated or Sedated No (0 pts) Impaired Gait No (0 pts) Mobility Assist Device Used No (0 pt) Altered Elimination No (0 pt) Score/Fall Risk Level 0 - 2 = Low Risk Oriented to surroundings, Maintained a safe environment, Educated pt \\T\\ family on fall prevention, incl call for assistance when getting out of bed. Abuse screen: Denies threats or abuse. Nutritional screening: No deficits noted. Tuberculosis screening: No symptoms or risk factors identified. Assessment: 03/19 00:43 Reassessment: Patient and/or family updated on plan of care and expected duration. Pain vc1 level reassessed. Patient is alert, oriented x 3, equal unlabored respirations, skin warm/dry/pink. Patient states symptoms have improved. GI: Reports nausea improved. 01:55 Reassessment: No changes from previously documented assessment. Patient and/or family vc1 updated on plan of care and expected duration. Pain level reassessed. Patient is alert, oriented x 3, equal unlabored respirations, skin warm/dry/pink. Vital Signs: 03/18 22:55 BP 110 / 70; Pulse 79; Resp 18 S; Temp 97.8(O); Pulse Ox 100% on R/A; Weight 77.11 kg as6 (R); Height 5 ft. 6 in. (R); Pain 2/10; 23:45 BP 99 / 61; Pulse 74; Resp 17; Pulse Ox 100% ; vc1 03/19 00:44 BP 95 / 51; Pulse 76; Resp 16; Pulse Ox 100% ; vc1 01:00 BP 110 / 53; Pulse 74; Resp 16; Pulse Ox 100% ; vc1 03/18 22:55 Body Mass Index 27.44 (77.11 kg, 167.64 cm) as6 03/18 22:55 Pain Scale: Adult as6 ED Course: 03/18 22:44 Patient arrived in ED. ja2 22:52 Karlie Snow FNP-C [facility]. snw 22:52 Ronnie Graf MD is Attending Physician. snw 22:58 Triage completed. as6 22:59 Arm band placed on. as6 23:00 Otilia Trimble, MARTHA is Primary Nurse. vc1 23:27 Inserted saline lock: 20 gauge in right antecubital area, using aseptic technique. vc1 Blood collected. 23:33 CBC with Diff Sent. vc1 23:33 CMP Sent. vc1 23:33 Lipase Sent. vc1 23:33 Test, Urine Sent. vc1 23:33 Urinalysis w/ reflexes Sent. vc1 23:48 Patient has correct armband on for positive identification. Bed in low position. Call vc1 light in reach. Pulse ox on. NIBP on. 03/19 01:49 CT Abd/Pelvis - IV Contrast Only In Process Unspecified. EDMS 02:31 No provider procedures requiring assistance completed. IV discontinued, intact, as6 bleeding controlled, No redness/swelling at site. Pressure dressing applied. Administered Medications: 03/18 23:33 Drug: NS 0.9% IV 1000 ml Route: IV; Rate: 1 bolus; Site: right antecubital; vc1 03/19 02:31 Follow up: Response: No adverse reaction; IV Status: Completed infusion; IV Intake: as6 1000ml 03/18 23:33 Drug: Famotidine IVP 20 mg Route: IVP; Site: right antecubital; vc1 03/19 02:30 Follow up: Response: No adverse reaction as03/18 23:41 Drug: Promethazine IVP 25 mg Route: IVP; Site: right antecubital; vc1 03/19 02:30 Follow up: Response: No adverse reaction as6 03/18 23:41 Drug: NS 0.9% IV 250 ml Route: IV; Rate: bolus; Site: right antecubital; vc1 03/19 02:30 Follow up: Response: No adverse reaction; IV Status: Completed infusion; IV Intake: as6 250ml 01:18 Drug: Ketorolac IVP 15 mg Route: IVP; Site: right antecubital; vc1 02:30 Follow up: Response: No adverse reaction as6 Medication: 03/18 23:48 VIS not applicable for this client. vc1 Intake: 03/19 02:30 IV: 250ml; Total: 250ml. as6 02:31 IV: 1000ml; Total: 1250ml. as6 Outcome: 02:23 Discharge ordered by . snw 02:31 Discharged to home ambulatory, with family. as6 02:31 Condition: stable 02:31 Discharge instructions given to patient, Instructed on discharge instructions, follow up and referral plans. medication usage, Demonstrated understanding of instructions, follow-up care, medications, Prescriptions given X 3. 02:31 Patient left the ED. as6 Signatures: Dispatcher [employer] EDMS Karlie Snow, MOTORCYCLE DELIVERER-C MOTORCYCLE DELIVERER-Csnw Triny Morgan Ashby, RN RN as6 Otilia Trimble RN RN vc1 Corrections: (The following items were deleted from the chart) 03/18 23:33 23:32 NS 0.9% IV 250 ml IV at bolus in right antecubital vc1 vc1
--- NOTE | 2023-03-19 02:24 | EDPHYS ---
Physician Documentation [facility] Name: María Knight Age: 27 yrs Sex: Female : 1995 Arrival Date: 03/18/2023 Time: 22:40 Bed 19 Private MD: ED Physician Ronnie Graf HPI: 03/18 23:32 This 27 yrs old Female presents to ER via Ambulatory with complaints of snw Vomiting/Diarrhea, Abdominal Pain. 23:32 The patient presents to the emergency department with nausea, vomiting, diarrhea, snw abdominal pain. Onset: The symptoms/episode began/occurred suddenly, today. Associated signs and symptoms: Pertinent positives: diarrhea, nausea, vomiting. Severity of symptoms: At their worst the symptoms were moderate. The patient has experienced a previous episode. It is unknown whether or not the patient has recently seen a physician. 23:33 hx of gastric sleeve. 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 - Social history:: Smoking status: Patient denies any tobacco usage or history of. ROS: 23:32 Constitutional: Negative for fever, chills, and weight loss, Eyes: Negative for injury, snw pain, redness, and discharge, ENT: Negative for injury, pain, and discharge, Neck: Negative for injury, pain, and swelling, Cardiovascular: Negative for chest pain, palpitations, and edema, Respiratory: Negative for shortness of breath, cough, wheezing, and pleuritic chest pain, Back: Negative for injury and pain, : Negative for injury, bleeding, discharge, and swelling, MS/Extremity: Negative for injury and deformity, Skin: Negative for injury, rash, and discoloration, Neuro: Negative for headache, weakness, numbness, tingling, and seizure, Psych: Negative for depression, anxiety, suicide ideation, homicidal ideation, and hallucinations. 23:32 Abdomen/GI: Positive for abdominal pain, nausea, vomiting, and diarrhea, of the abdomen diffusely. Exam: 23:28 Constitutional: This is a well developed, well nourished patient who is awake, alert, snw and in no acute distress. Head/Face: Normocephalic, atraumatic. Eyes: Pupils equal round and reactive to light, extra-ocular motions intact. Lids and lashes normal. Conjunctiva and sclera are non-icteric and not injected. Cornea within normal limits. Periorbital areas with no swelling, redness, or edema. ENT: Nares patent. No nasal discharge, no septal abnormalities noted. Tympanic membranes are normal and external auditory canals are clear. Oropharynx with no redness, swelling, or masses, exudates, or evidence of obstruction, uvula midline. Mucous membranes moist. Neck: Trachea midline, no thyromegaly or masses palpated, and no cervical lymphadenopathy. Supple, full range of motion without nuchal rigidity, or vertebral point tenderness. No Meningismus. Chest/axilla: Normal chest wall appearance and motion. Nontender with no deformity. No lesions are appreciated. Cardiovascular: Regular rate and rhythm with a normal S1 and S2. No gallops, murmurs, or rubs. Normal PMI, no JVD. No pulse deficits. Respiratory: Lungs have equal breath sounds bilaterally, clear to auscultation and percussion. No rales, rhonchi or wheezes noted. No increased work of breathing, no retractions or nasal flaring. Back: No spinal tenderness. No costovertebral tenderness. Full range of motion. Skin: Warm, dry with normal turgor. Normal color with no rashes, no lesions, and no evidence of cellulitis. MS/ Extremity: Pulses equal, no cyanosis. Neurovascular intact. Full, normal range of motion. Neuro: Awake and alert, GCS 15, oriented to person, place, time, and situation. Cranial nerves II-XII grossly intact. Motor strength 5/5 in all extremities. Sensory grossly intact. Cerebellar exam normal. Normal gait. Psych: Awake, alert, with orientation to person, place and time. Behavior, mood, and affect are within normal limits. 23:28 Abdomen/GI: Inspection: abdomen appears normal, Bowel sounds: normal, Palpation: mild abdominal tenderness, in all quadrants. Vital Signs: 22:55 BP 110 / 70; Pulse 79; Resp 18 S; Temp 97.8(O); Pulse Ox 100% on R/A; Weight 77.11 kg as6 (R); Height 5 ft. 6 in. (R); Pain 2/10; 23:45 BP 99 / 61; Pulse 74; Resp 17; Pulse Ox 100% ; vc1 03/19 00:44 BP 95 / 51; Pulse 76; Resp 16; Pulse Ox 100% ; vc1 01:00 BP 110 / 53; Pulse 74; Resp 16; Pulse Ox 100% ; vc1 03/18 22:55 Body Mass Index 27.44 (77.11 kg, 167.64 cm) as6 03/18 22:55 Pain Scale: Adult as6 MDM: 03/18 22:57 Patient medically screened. snw 03/19 01:04 Differential diagnosis: Nonspecific abd pain, gastritis, cholecystitis, pancreatitis, snw diverticulitis, gastroenteritis. Data reviewed: vital signs, nurses notes. ED course: Nausea improved, pt still c/o pain. 1/2L NS infused, blood pressure soft at 95/51. 02:18 Counseling: I had a detailed discussion with the patient and/or guardian regarding: the snw historical points, exam findings, and any diagnostic results supporting the discharge/admit diagnosis, lab results, radiology results, the need for outpatient follow up, for definitive care, to return to the emergency department if symptoms worsen or persist or if there are any questions or concerns that arise at home. Response to treatment: the patient's symptoms have markedly improved after treatment. Special discussion: Based on the patient's Hx, exam, and Dx evaluation, there is no indication for emergent surgery or inpatient Tx. It is understood by the patient/guardian that if the Sx's persist or worsen they need to return immediately for re-evaluation. Based on the history and exam findings, there is no indication for further emergent testing or inpatient evaluation. 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 I discussed with the patient/guardian the need to see the primary care provider for further evaluation of the symptoms. 03/18 23:07 Order name: CBC with Diff; Complete Time: 23:40 snw 03/18 23:07 Order name: CMP; Complete Time: 23:57 snw 03/18 23:07 Order name: Lipase; Complete Time: 23:57 snw 03/18 23:07 Order name: Test, Urine; Complete Time: 00:48 snw 03/18 23:07 Order name: Urinalysis w/ reflexes; Complete Time: 00:50 snw 03/19 01:04 Order name: CT Abd/Pelvis - IV Contrast Only snw 03/18 23:07 Order name: IV Saline Lock; Complete Time: 23:33 snw 03/18 23:07 Order name: Labs collected and sent; Complete Time: 23:33 snw Administered Medications: 03/18 23:33 Drug: NS 0.9% IV 1000 ml Route: IV; Rate: 1 bolus; Site: right antecubital; vc1 03/19 02:31 Follow up: Response: No adverse reaction; IV Status: Completed infusion; IV Intake: as6 1000ml 03/18 23:33 Drug: Famotidine IVP 20 mg Route: IVP; Site: right antecubital; vc1 03/19 02:30 Follow up: Response: No adverse reaction 03/18 23:41 Drug: Promethazine IVP 25 mg Route: IVP; Site: right antecubital; vc1 03/19 02:30 Follow up: Response: No adverse reaction 03/18 23:41 Drug: NS 0.9% IV 250 ml Route: IV; Rate: bolus; Site: right antecubital; vc1 03/19 02:30 Follow up: Response: No adverse reaction; IV Status: Completed infusion; IV Intake: as6 250ml 01:18 Drug: Ketorolac IVP 15 mg Route: IVP; Site: right antecubital; vc1 02:30 Follow up: Response: No adverse reaction as6 Disposition: 03:10 Co-signature as Attending Physician, Ronnie Graf MD I agree with the assessment sp4 and plan of care. I reviewed the patient's care provided by the Advanced Practice Provider and agree with the diagnosis and treatment plan. Disposition Summary: 03/19/23 02:23 Discharge Ordered Location: Home snw Condition: Stable snw Diagnosis - Infectious gastroenteritis and colitis, unspecified snw - Gastritis, unspecified, without bleeding snw Followup: snw - With: Emergency Department - When: As needed - Reason: Worsening of condition Followup: snw - With: Private Physician - When: 5 - 6 days - Reason: Recheck today's complaints, Continuance of care, Re-evaluation by your physician Discharge Instructions: - Discharge Summary Sheet snw - Food Choices to Help Relieve Diarrhea, Adult snw - Diarrhea, Adult snw - Gastritis, Adult snw - Colitis snw Forms: - Work release form snw - Medication Reconciliation Form snw - Thank You Letter snw - Antibiotic Education snw - Prescription Opioid Use snw - [email or web address] snw Prescriptions: - Cipro 500 mg Oral Tablet - take 1 tablet by ORAL route every 12 hours for 10 days; 20 tablet; Refills: 0, snw Product Selection Permitted - promethazine 25 mg Oral Tablet - take 1 tablet by ORAL route every 6 hours As needed; 20 tablet; Refills: 0, snw Product Selection Permitted - dicyclomine 20 mg Oral Tablet - take 1 tablet by ORAL route 3 times per day; 21 tablet; Refills: 0, Product snw Selection Permitted Signatures: Dispatcher [employer] EDMT Karlie Snow FNP-C GUEST HOUSE MANAGER-Dennisw Ortega Monson RN RN as6 Otilia Trimble RN RN vc1 Ronnie Graf MD MD sp4
[2023-03-19 02:54] VITALS: TEMP 97.8; O2SAT 100
[2023-03-19 02:59] VITALS: BP 110/53
--- NOTE | 2023-03-19 21:52 | RAD REPORT ---
EXAM DESCRIPTION: CT - Abdomen Pelvis W Contrast - 03/19/2023 6:45 am CLINICAL HISTORY: ABD PAIN COMPARISON: 08/12/2021 TECHNIQUE: CT of the abdomen and pelvis performed following the administration of IV contrast. No or al contrast. This exam was performed according to our departmental dose-optimization program, which i ncludes automated exposure control, adjustment of the mA and/or kV according to patient size and/or u se of iterative reconstruction technique. FINDINGS: Lung Bases: The visualized lung bases are clear. Abdomen: Liver: Normal contour. Homogeneous parenchyma. No suspicious mass. No intrahepatic biliary dilatati on. Gallbladder: No calcified gallstones. Spleen, Pancreas, and Adrenal Glands: The spleen, pancreas, and adrenal glands are unremarkable. Kidneys: No suspicious mass. No urinary tract calculi. No hydronephrosis. Vasculature: The aorta and IVC have normal caliber and position. The portal vein is patent. The pro ximal visceral and renal arteries are patent. Stomach: Stable postsurgical changes. There is some mild gastric wall thickening. Other: No free intraperitoneal air. No free fluid or lymphadenopathy. Pelvis: Bladder: Underdistended. Bowel: Colon is diffusely fluid-filled, suspicious for diarrhea. There may be some mild wall thicke raeann at the level of the rectum. Multiple distal small bowel loops are also fluid-filled. No bowel ob struction. Appendix: Normal appendix. Pelvis: No suspicious mass. Bones: No destructive bone lesions identified. IMPRESSION: Findings suspicious for enterocolitis. There is some mild gastric wall thickening which could also reflect gastritis. Electronically signed by: Yusra Tyson MD 03/19/2023 2:04 AM CDT Due to temporary technical issues with the PACS/Fluency reporting system, reports are being signed by the in house radiologists without review as a courtesy to insure prompt reporting. The interpreting radiologist is fully responsible for the content of the report.
== END 2023-03-19 02:31 | disposition home or self-care (01) ==
LOC: ER 22:40
DX: A09 Infectious gastroenteritis and colitis, unspecified (principal); K29.70 Gastritis, unspecified, without bleeding; Z88.8 Allergy status to other drugs, medicaments and biological substances
CPT/HCPCS: 96365; 85025; 81001; 36415; 81025; 83690; 80053; 74177; 96375; 99284; 96366; Q9967; J2550; J7050; J7030